=== PATIENT | male | born 1960 | race Caucasian/White ===

== ENCOUNTER 2017-10-05 11:54 | Observation (INO) | payer MEDICARE, MEDICAID ==
[~2017-10-05] VITALS: Ht 177.8 cm; Wt 57.2 kg
[~2017-10-05 11:54] MED LIST: ADULT LOW DOSE81 MG PO; ALDACTONE25 MG PO; AMITIZA8 MCG PO; ASPIR-LOW81 MG PO; ASPIR-TRIN325 MG PO; BACTRIM DS TAB1 EACH PO; CELEXA20 MG PO; CENTRUM SILVER1 EAC2 PO; CITRATE OF MAG296 ML PO; COLACE100 MG PO; COREG6.25 MG PO; DITROPAN XL10 MG PO; DYNACIN100 MG PO; ENTRESTO 24 MG1 EACH PO; GLUCOPHAGE1000 MG PO; GLUCOTROL5 MG PO; HARVONI 90-4001 EACH PO; HYDROCODON-ACE1 EAC7 PO; IRON325 PO; K-DUR 20 MEQ T20 MEQ PO; KEFLEX500 M1 PO; KEFLEX500 MG PO; LASIX 20 MG TAB20 MG PO; LASIX 40 MG TAB40 M2 PO; LUNESTA2 MG PO; LYRICA150 MG PO; METFORMIN HCL1000 MG PO; METFORMIN HCL500 MG PO; MINOCIN100 MG PO; NAPROSYN500 MG PO; NEURONTIN 300300 M1 PO; NICOTINE TRANSD21 M1 TRANSDERM; NORCO 10-325 T1 EACH PO; OMEPRAZOLE 20 M20 M1 PO; OMEPRAZOLE20 M2 PO; PERCOCET 10-321 EAC1 PO; PERCOCET 10-321 EACH PO; PERCOCET 7.5-31 EACH PO; PLAVIX 75 MG TA75 M1 PO; PRILOSEC20 MG PO; PROBIOTIC1 EAC1 PO; PROPRANOLOL 4040 M1 PO; PROPRANOLOL 4040 MG PO; RISPERDAL 1 MG T1 MG PO; RISPERIDONE 1 MG1 MG PO; SEROQUEL 25 MG25 M1 PO; SIMVASTATIN40 MG PO; TOVIAZ8 MG PO; TRAMADOL 50 MG50 MG PO; TRAZODONE HCL100 MG PO; ULTRAM 50MG TAB50 MG PO; UNICOMPLEX M TA1 TA1 PO; UNISOM50 MG PO; VITAMINC500 PO; VOLTAREN; VOLTAREN GEL 1100 G2; ZINC10 MG PO; ZOCOR20 MG PO; ZPAK PO
[2017-10-05 12:22] VITALS: BP 165/82
[2017-10-05 12:32] LABS: HEMATOCRIT 29.1 % (42.0-52.0); HEMOGLOBIN 10.2 gm/dL (14.0-18.0); MCH 29.7 pg (26.0-34.0); MCHC 34.9 g/dL (28.0-37.0); MCV 84.9 fL (80.0-100.0); MPV 7.6 fl. (7.2-11.1); NUCLEATED RBCS 0 /100WBC; PLATELET COUNT* 153 thou/uL (150-400); RBC 3.43 mil/uL (4.50-6.00); RDW-CV 14.1 % (10.5-14.5); WBC 9.4 thou/uL (4.0-11.0)
[2017-10-05 12:43] LABS: CALCIUM 9.2 mg/dL (8.5-10.1); CREATININE 0.8 mg/dL (0.6-1.3); POTASSIUM 4.4 mmol/L (3.5-5.1)
[2017-10-05 13:05] LABS: ABSOLUTE LYMPHOCYTES 0.7 thou/uL (0.8-5.3); ABSOLUTE MONOCYTES 0.5 thou/uL (0.0-1.2); ABSOLUTE NEUTROPHILS 8.3 thou/uL (1.6-8.1); PLATELET ESTIMATE ADEQUATE
[2017-10-05 13:06] LABS: ANISOCYTOSIS 1+; POIKILOCYTOSIS 1+
[2017-10-05 18:24] VITALS: BP 155/64
[2017-10-05 18:53] VITALS: BP 148/64
[2017-10-05 20:00] VITALS: BP 95/43
[2017-10-05 21:00] VITALS: BP 90/42
[2017-10-05 23:30] VITALS: BP 100/63
[2017-10-06 04:00] VITALS: BP 118/55
[2017-10-06 04:37] LABS: ABSOLUTE EOSINOPHILS 0.1 thou/uL (0.0-0.7); ABSOLUTE LYMPHOCYTES 0.9 thou/uL (0.8-5.3); ABSOLUTE MONOCYTES 0.6 thou/uL (0.0-1.2); ABSOLUTE NEUTROPHILS 3.9 thou/uL (1.6-8.1); BASOPHILS 0.4 %; EOSINOPHILS 1.2 %; HEMATOCRIT 23.6 % (42.0-52.0); HEMOGLOBIN 8.4 gm/dL (14.0-18.0); LYMPHOCYTES 15.8 %; MCH 29.4 pg (26.0-34.0); MCHC 35.4 g/dL (28.0-37.0); MCV 83.1 fL (80.0-100.0); MONOCYTES 11.1 %; MPV 7.8 fl. (7.2-11.1); NUCLEATED RBCS 0 /100WBC; PLATELET COUNT* 130 thou/uL (150-400); POLYS 71.5 %; RBC 2.84 mil/uL (4.50-6.00); RDW-CV 14.3 % (10.5-14.5); WBC 5.4 thou/uL (4.0-11.0)
[2017-10-06 04:39] LABS: CALCIUM 8.7 mg/dL (8.5-10.1); CREATININE 0.8 mg/dL (0.6-1.3); POTASSIUM 4.2 mmol/L (3.5-5.1)
[2017-10-06 07:59] VITALS: BP 117/54
[2017-10-06 09:14] VITALS: BP 117/54
--- NOTE | 2017-10-26 14:35 | OP ---
[address] [address] OPERATIVE REPORT Name: CLARA QUINN Room: [address] Carolee Zuñiga#: [id number] Admission: 10/05/17 Attend Phys: Stephane Cordero MD Discharge: 10/06/17 Date of : 64 Report #: [id number] THIS REPORT FOR: //name// CC: Germain Mcnair DATE OF SERVICE: 10/05/2017 PREOPERATIVE DIAGNOSIS: Peripheral vascular disease with ulcer in the right lower extremity. POSTOPERATIVE DIAGNOSIS: Peripheral vascular disease with ulcer in the right lower extremity. SURGEON: Jay Moise DO. BOX MAKER: None. PROCEDURE: 1. Ultrasound-guided access of the left common femoral artery. 2. Right lower extremity angiogram, catheter position third order. 3. Angioplasty of the tibioperoneal trunk and peroneal artery with VascuTrak 3 mm x 100 angioplasty balloon. 4. Angioplasty of the right anterior tibial artery and popliteal artery with Ultraverse 3 mm x 150 angioplasty balloon. 5. Limited angiogram, left common femoral artery. 6. StarClose closure device, left common femoral artery. ESTIMATED BLOOD LOSS: Minimal. SPECIMEN: None. COMPLICATIONS: None. CONDITION: Stable. DISPOSITION: Home. INDICATIONS FOR THE PROCEDURE AND CONSENT: The patient is a 56-year-old male who is active ple-tlza-sae-day smoker, status post left lower extremity amputation with an ulcer over his right lower extremity. The [facility] and has inadequate arterial flow for wound healing. He has been counseled for years about smoking cessation and is unable to quit. Due to his active ulcer though, a right lower extremity angiogram with intervention was discussed with him to optimize blood flow for wound healing for recurrent ulcer, which [place] [address] OPERATIVE REPORT Name: CLARA QUINN Room: [address] Carolee Zuñiga#: [id number] Admission: 10/05/17 Attend Phys: Stephane Cordero MD Discharge: 10/06/17 Date of : 64 Report #: [id number] benefits of this were discussed, infection, bleeding, recurrence of stenosis, limb loss despite intervention and imperative need to quit smoking, the patient wished to proceed, was consented and scheduled. PROCEDURE IN DETAIL: After timeout was performed, the patient was placed in the supine position with sterile prep and drape of the anterior groin, anterior abdomen and thigh. The left common femoral artery was identified under ultrasound guidance, local anesthetic was injected and a small transverse incision. A hemostat was used to dissect down to the femoral artery under ultrasound to allow a Seldinger needle to advance into the right common femoral artery and a wire. The needle was removed and then a 6-Zambian sheath placed. Glidewire Advantage and Omniflush catheter were advanced into the infrarenal aorta. An aortogram was performed, which demonstrated widely patent aorta, bilateral common iliacs and bilateral internal and external iliac arteries. The Glidewire Advantage and Omniflush catheter were brought down to the aortogram position and advanced into the right external iliac artery under fluoroscopic guidance. A right lower extremity angiogram was then performed, which demonstrated widely patent common femoral, superficial femoral and profunda vessel to the knee. Popliteal artery demonstrated disease, but no severe stenosis was identified. Below the knee, the tibioperoneal trunk was heavily diseased and nearly occluded. The anterior tibial artery was patent at its origin with a near occlusion approximately a centimeter beyond its origin, good flow in the mid to distal calf, which appeared to normalize fairly well. The peroneal artery was the primary flow to the ankle and anterior tibial artery had delayed flow distally. Flow on to the foot into the area of his wounds was primarily through the collaterals of the peroneal artery. The patient was systemically heparinized with 6000 units of heparin and an up and over 6-Zambian sheath was selected and advanced over the wire into the proximal superficial femoral artery. A 0.014 Glidewire Advantage was advanced beyond the severe stenosis in the tibioperoneal trunk and into the distal peroneal vessel without difficulty. This was felt to be best treated with a VascuTrak cutting balloon. A 3 mm x 100 VascuTrak was selected and advanced into position under fluoroscopic guidance and angioplasty performed and allowed to be sustained for 4 minutes. Repeat angiography demonstrated excellent radiographic result without flow limitation or stenosis. I then negotiated the 0.014 Glidewire Advantage into the anterior tibial artery with the assistance of an angled vertebral catheter and I was able to negotiate the wire into the distal anterior tibial artery with modest difficulty. I attempted to advance the previously mentioned VascuTrak balloon; however, it would not pass over the wire into the distal anterior tibial artery. I then felt that an Ultraverse may track better and a 3 x 150 was selected and advanced into position and angioplasty performed for 4 minutes. Repeat angiography demonstrated excellent radiographic result of both vessels. I then removed the wire and balloon and advanced the 0.035 Glidewire Advantage back through the sheath and retracted the sheath in the left external iliac artery and [place] [address] OPERATIVE REPORT Name: CLARA QUINN Room: [address]#: [id number] Admission: 10/05/17 Attend Phys: Stephane Cordero MD Discharge: 10/06/17 Date of : 64 Report #: [id number] left common femoral artery. It was noted to be appropriate for closure device. Angio-Seal closure device was not available to me. We will send a back order. A StarClose device was used instead. It was deployed in a standard fashion without difficulty and did not appear to bleed. Pressure was held for 2 minutes for additional hemostasis; 4-0 Monocryl was used to close the skin and Dermabond dressing was applied. The patient tolerated the procedure well. All lap, needle and instrument counts were correct. <ELECTRONICALLY SIGNED> By: Jay Moise DO 10/26/17 1435 2153 0142Jay Moise DO /nt
== END 2017-10-06 10:40 | disposition home or self-care (01) ==
LOC: M.INT 11:54 → M.ORTHSURG 17:24
PROVIDERS: Surgery; ADMIT Internal Medicine
DX: I73.9 Peripheral vascular disease, unspecified (principal); L97.919 Non-pressure chronic ulcer of unspecified part of right lower leg with unspecified severity; I10 Essential (primary) hypertension; E11.42 Type 2 diabetes mellitus with diabetic polyneuropathy; F17.210 Nicotine dependence, cigarettes, uncomplicated; I11.0 Hypertensive heart disease with heart failure; I50.9 Heart failure, unspecified; Z86.73 Personal history of transient ischemic attack (TIA), and cerebral infarction without residual deficits; Z79.899 Other long term (current) drug therapy

== ENCOUNTER → 2017-10-12 | Outpatient (CLI) | payer MEDICARE, MEDICAID ==
[~2017-10-12] MED LIST changes: +ATIVAN0.5 MG PO; +HYDROXYZINE HCL25 M1 PO; +INGREZZA80 MG PO; +LEXAPRO 10 MG T10 M2 PO; +NORCO 5-325 TA1 EACH PO; +NORCO 7.5-3251 EACH PO; +ONDANSETRON HCL4 M2 PO; +OXYBUTYNIN 5 MG5 M2 PO; +ROBAXIN 750 MG750 M1 PO; +SERTRALINE HCL50 MG PO; +SODIUM CHLORIDE1 G2 PO; +XANAX 1 MG TABLE1 MG PO
== END ==
LOC: M.WC 02:42
DX: E11.622 Type 2 diabetes mellitus with other skin ulcer (principal); L97.311 Non-pressure chronic ulcer of right ankle limited to breakdown of skin; L89.891 Pressure ulcer of other site, stage 1; I50.9 Heart failure, unspecified; F17.210 Nicotine dependence, cigarettes, uncomplicated; F12.90 Cannabis use, unspecified, uncomplicated; F14.90 Cocaine use, unspecified, uncomplicated; Z72.89 Other problems related to lifestyle; Z89.512 Acquired absence of left leg below knee

== ENCOUNTER → 2017-10-19 | Outpatient (CLI) | payer MEDICARE, MEDICAID | LOC: M.WC 01:24 | DX: T87.89 Other complications of amputation stump (principal); E11.622 Type 2 diabetes mellitus with other skin ulcer; I70.233 Atherosclerosis of native arteries of right leg with ulceration of ankle; L97.311 Non-pressure chronic ulcer of right ankle limited to breakdown of skin; L97.821 Non-pressure chronic ulcer of other part of left lower leg limited to breakdown of skin; F17.210 Nicotine dependence, cigarettes, uncomplicated; I50.9 Heart failure, unspecified; F14.90 Cocaine use, unspecified, uncomplicated; Z72.89 Other problems related to lifestyle; Y83.5 Amputation of limb(s) as the cause of abnormal reaction of the patient, or of later complication, without mention of misadventure at the time of the procedure ==

== ENCOUNTER → 2017-10-26 | Outpatient (CLI) | payer MEDICARE, MEDICAID | LOC: M.WC 01:19 | DX: E11.622 Type 2 diabetes mellitus with other skin ulcer (principal); L97.311 Non-pressure chronic ulcer of right ankle limited to breakdown of skin; L89.512 Pressure ulcer of right ankle, stage 2; L89.893 Pressure ulcer of other site, stage 3; L97.821 Non-pressure chronic ulcer of other part of left lower leg limited to breakdown of skin; I50.9 Heart failure, unspecified; F17.200 Nicotine dependence, unspecified, uncomplicated; Z89.512 Acquired absence of left leg below knee; Z72.89 Other problems related to lifestyle ==

== ENCOUNTER → 2017-11-16 | Outpatient (CLI) | payer MEDICARE, MEDICAID | LOC: M.WC 01:43 | DX: E11.622 Type 2 diabetes mellitus with other skin ulcer (principal); L97.311 Non-pressure chronic ulcer of right ankle limited to breakdown of skin; L97.821 Non-pressure chronic ulcer of other part of left lower leg limited to breakdown of skin; L89.893 Pressure ulcer of other site, stage 3; I50.9 Heart failure, unspecified; F17.200 Nicotine dependence, unspecified, uncomplicated; Z72.89 Other problems related to lifestyle ==

== ENCOUNTER → 2017-12-07 | Outpatient (CLI) | payer MEDICARE, MEDICAID | LOC: M.WC 04:47 | DX: E11.622 Type 2 diabetes mellitus with other skin ulcer (principal); L97.311 Non-pressure chronic ulcer of right ankle limited to breakdown of skin; L89.893 Pressure ulcer of other site, stage 3; L89.512 Pressure ulcer of right ankle, stage 2; S81.801A Unspecified open wound, right lower leg, initial encounter; I50.9 Heart failure, unspecified; F17.200 Nicotine dependence, unspecified, uncomplicated; Z72.89 Other problems related to lifestyle; Z89.512 Acquired absence of left leg below knee; X58.XXXA Exposure to other specified factors, initial encounter; Y93.89 Activity, other specified; Y92.89 Other specified places as the place of occurrence of the external cause; Y99.8 Other external cause status ==

== ENCOUNTER → 2018-01-11 | Outpatient (CLI) | payer MEDICARE, MEDICAID | LOC: M.WC 12-28 10:00 | DX: T87.89 Other complications of amputation stump (principal); E11.622 Type 2 diabetes mellitus with other skin ulcer; I70.233 Atherosclerosis of native arteries of right leg with ulceration of ankle; L97.311 Non-pressure chronic ulcer of right ankle limited to breakdown of skin; L97.811 Non-pressure chronic ulcer of other part of right lower leg limited to breakdown of skin; L97.821 Non-pressure chronic ulcer of other part of left lower leg limited to breakdown of skin; F17.210 Nicotine dependence, cigarettes, uncomplicated; I50.9 Heart failure, unspecified; F14.90 Cocaine use, unspecified, uncomplicated; Y83.5 Amputation of limb(s) as the cause of abnormal reaction of the patient, or of later complication, without mention of misadventure at the time of the procedure ==

== ENCOUNTER → 2018-02-01 | Outpatient (CLI) | payer MEDICARE, MEDICAID | LOC: M.WC 02:51 | DX: T87.89 Other complications of amputation stump (principal); E11.622 Type 2 diabetes mellitus with other skin ulcer; I70.233 Atherosclerosis of native arteries of right leg with ulceration of ankle; L97.311 Non-pressure chronic ulcer of right ankle limited to breakdown of skin; F17.210 Nicotine dependence, cigarettes, uncomplicated; I50.9 Heart failure, unspecified; Y83.5 Amputation of limb(s) as the cause of abnormal reaction of the patient, or of later complication, without mention of misadventure at the time of the procedure ==

== ENCOUNTER → 2018-03-01 | Outpatient (CLI) | payer MEDICARE, MEDICAID | LOC: M.WC 04:11 | DX: E11.622 Type 2 diabetes mellitus with other skin ulcer (principal); L97.318 Non-pressure chronic ulcer of right ankle with other specified severity; I70.233 Atherosclerosis of native arteries of right leg with ulceration of ankle; I50.9 Heart failure, unspecified; F17.210 Nicotine dependence, cigarettes, uncomplicated; F12.90 Cannabis use, unspecified, uncomplicated; Z89.512 Acquired absence of left leg below knee ==

== ENCOUNTER → 2018-04-26 | Outpatient (CLI) | payer MEDICARE, MEDICAID | LOC: M.WC 04:44 | DX: T87.89 Other complications of amputation stump (principal); E11.621 Type 2 diabetes mellitus with foot ulcer; L97.511 Non-pressure chronic ulcer of other part of right foot limited to breakdown of skin; E11.622 Type 2 diabetes mellitus with other skin ulcer; I70.233 Atherosclerosis of native arteries of right leg with ulceration of ankle; L97.311 Non-pressure chronic ulcer of right ankle limited to breakdown of skin; I50.9 Heart failure, unspecified; F17.200 Nicotine dependence, unspecified, uncomplicated; Z89.512 Acquired absence of left leg below knee; Y83.5 Amputation of limb(s) as the cause of abnormal reaction of the patient, or of later complication, without mention of misadventure at the time of the procedure ==

== ENCOUNTER → 2018-05-10 | Outpatient (CLI) | payer MEDICARE, MEDICAID | LOC: M.WC 04:06 | DX: T87.89 Other complications of amputation stump (principal); E11.621 Type 2 diabetes mellitus with foot ulcer; L97.511 Non-pressure chronic ulcer of other part of right foot limited to breakdown of skin; E11.622 Type 2 diabetes mellitus with other skin ulcer; I70.233 Atherosclerosis of native arteries of right leg with ulceration of ankle; L97.311 Non-pressure chronic ulcer of right ankle limited to breakdown of skin; I50.9 Heart failure, unspecified; F17.210 Nicotine dependence, cigarettes, uncomplicated; F10.11 Alcohol abuse, in remission; Z89.512 Acquired absence of left leg below knee; Y83.5 Amputation of limb(s) as the cause of abnormal reaction of the patient, or of later complication, without mention of misadventure at the time of the procedure ==

== ENCOUNTER 2018-05-17 13:53 | Inpatient (IN) | payer MEDICARE, MEDICAID ==
[~2018-05-17] VITALS: Ht 177.8 cm; Wt 53.1 kg
[~2018-05-17 13:53] MED LIST changes: -ATIVAN0.5 MG PO; -HYDROXYZINE HCL25 M1 PO; -INGREZZA80 MG PO; -LEXAPRO 10 MG T10 M2 PO; -NORCO 5-325 TA1 EACH PO; -NORCO 7.5-3251 EACH PO; -ONDANSETRON HCL4 M2 PO; -OXYBUTYNIN 5 MG5 M2 PO; -ROBAXIN 750 MG750 M1 PO; -SERTRALINE HCL50 MG PO; -SODIUM CHLORIDE1 G2 PO; -XANAX 1 MG TABLE1 MG PO
[2018-05-17 13:59] VITALS: BP 136/69
[2018-05-17] MEDS ORDERED: INGREZZA80 MG PO (14:11)
[2018-05-17] MEDS ORDERED: NORCO 7.5-3251 EACH PO (14:11)
[2018-05-17] MEDS ORDERED: HYDROXYZINE HCL25 M1 PO (14:13)
[2018-05-17] MEDS ORDERED: OXYBUTYNIN 5 MG5 M2 PO (14:13)
[2018-05-17] MEDS ORDERED: SERTRALINE HCL50 MG PO (14:15)
[2018-05-17 14:29] LABS: ABSOLUTE BASOPHILS 0.1 thou/uL (0.0-0.2); ABSOLUTE EOSINOPHILS 0.2 thou/uL (0.0-0.7); ABSOLUTE LYMPHOCYTES 1.3 thou/uL (0.8-5.3); ABSOLUTE MONOCYTES 0.8 thou/uL (0.0-1.2); ABSOLUTE NEUTROPHILS 5.7 thou/uL (1.6-8.1); BASOPHILS 0.7 %; EOSINOPHILS 2.1 %; HEMATOCRIT 34.2 % (42.0-52.0); HEMOGLOBIN 11.9 gm/dL (14.0-18.0); LYMPHOCYTES 15.7 %; MCH 28.3 pg (26.0-34.0); MCHC 34.8 g/dL (28.0-37.0); MCV 81.4 fL (80.0-100.0); MPV 7.9 fl. (7.2-11.1); NUCLEATED RBCS 0 /100WBC; PLATELET COUNT* 187 thou/uL (150-400); POLYS 71.5 %; RDW-CV 13.3 % (10.5-14.5)
[2018-05-17 14:40] LABS: INR 1.2; PROTIME 11.4 Seconds (9.20-11.50)
[2018-05-17 15:26] LABS: ALBUMIN 3.5 g/dL (3.4-5.0); ALKALINE PHOSPHATASE 44 U/L (46-116); ANION GAP 6 mmol/L (7-16); BUN 21 mg/dL (7-18); CALCIUM 8.8 mg/dL (8.5-10.1); CHLORIDE 95 mmol/L (98-107); CO2 26 mmol/L (21-32); CREATININE 1.1 mg/dL (0.6-1.3); GLUCOSE 87 mg/dL (70-99); LIPASE 66 U/L (73-393); SGOT 14 U/L (15-37); SGPT 17 U/L (30-65); SODIUM 127 mmol/L (136-145); TOTAL BILIRUBIN 0.2 mg/dL (<0.1-1.0); TROPONIN-I LEVEL <0.06 ng/mL (<0.06)
[2018-05-17 16:21] LABS: URINE BILIRUBIN NEGATIVE (Negative); URINE BLOOD NEGATIVE (Negative); URINE CLARITY CLEAR; URINE COLOR YELLOW; URINE GLUCOSE-RANDOM NEGATIVE (Negative); URINE KETONES TRACE (Negative); URINE LEUKOCYTES-REFLEX NEGATIVE (Negative); URINE NITRITE-REFLEX NEGATIVE (Negative); URINE PROTEIN NEGATIVE (Negative); URINE SPECIFIC GRAVITY <= 1.005 (1.005-1.030); URINE UROBILINOGEN 0.2 E.U./dl (0.2-1.0)
[2018-05-17 17:25] VITALS: BP 132/61
[2018-05-17 17:30] VITALS: BP 152/68
--- NOTE | 2018-05-17 18:25 | NUR ---
PATIENT ARRIVED TO UNIT FROM ED AT 1725. ALERT AND ORIENTED X4. ASSESSMENT COMPLETED AND CHARTED. VSS ON ROOM AIR. FLUIDS STARTED AND INFUSING ORDERED. ADMISSION HISTORY COMPLETED AND CHARTED. PATIENT HAS NOT HAD A BOWEL MOVEMENT SINCE ARRIVING AT THE HOSPITAL TODAY, OR TO THE UNIT. NO COMPLAINTS OF PAIN, NAUSEA, OR SOA. PATIENT ORIENTED TO ROOM AND INSTRUCTED TO CALL FOR ASSISTANCE. CALL LIGHT PLACED IN REACH. NURSING WILL CONTINUE TO MONITOR.
[2018-05-17 20:30] VITALS: BP 140/78
[2018-05-18 04:16] LABS: ABSOLUTE EOSINOPHILS 0.2 thou/uL (0.0-0.7); ABSOLUTE LYMPHOCYTES 1.4 thou/uL (0.8-5.3); ABSOLUTE MONOCYTES 0.6 thou/uL (0.0-1.2); ABSOLUTE NEUTROPHILS 3.3 thou/uL (1.6-8.1); BASOPHILS 0.7 %; EOSINOPHILS 3.2 %; HEMATOCRIT 29.3 % (42.0-52.0); HEMOGLOBIN 10.2 gm/dL (14.0-18.0); LYMPHOCYTES 25.9 %; MCH 28.2 pg (26.0-34.0); MCHC 34.9 g/dL (28.0-37.0); MCV 80.8 fL (80.0-100.0); MONOCYTES 11.1 %; MPV 7.8 fl. (7.2-11.1); NUCLEATED RBCS 0 /100WBC; PLATELET COUNT* 182 thou/uL (150-400); POLYS 59.1 %; RBC 3.63 mil/uL (4.50-6.00); RDW-CV 13.2 % (10.5-14.5); WBC 5.6 thou/uL (4.0-11.0)
[2018-05-18 04:46] LABS: ALBUMIN 3.8 g/dL (3.4-5.0); CALCIUM 8.7 mg/dL (8.5-10.1); CREATININE 0.9 mg/dL (0.6-1.3); POTASSIUM 4.5 mmol/L (3.5-5.1); TOTAL BILIRUBIN 0.3 mg/dL (<0.1-1.0); TOTAL PROTEIN 6.9 g/dL (6.4-8.2)
--- NOTE | 2018-05-18 07:17 | NUR ---
Alert and oriented x 4. L below the knee amputation that is old and healed but does have a red area on the stump. He gets up in the wheelchair and moves about the room. Voiding well and no BM. He had pain meds x 2 this shift. He has slept well. Vitals are stable.
[2018-05-18 08:55] VITALS: BP 101/63
[2018-05-18 09:39] VITALS: BP 101/63
--- NOTE | 2018-05-18 10:25 | NUR ---
ASSUMED CARE OF PATIENT AFTER MORNING REPORT. ALERT AND ORIENTED X4. ASSESSMENT COMPLETED AND CHARTED. VSS ON ROOM AIR. PATIENT HAD NO COMPLAINTS OF NAUSEA OR SOA. PAIN MEDICATION GIVEN BY NIGHT NURSE BEFORE 0700. PATIENT CALLING OUT REPEATEDLY FOR NEEDS, WANTING TO GO HOME AND ASKING FOR A SCRIPT FOR PAIN MEDICATION. PATIENT HAS HAD NO BOWEL MOVEMENT SINCE ARRIVING TO THE HOSPITAL YESTERDAY AFTERNOON, DIARRHEA SEEMS TO HAVE RESOLVED ON ITS OWN. PATIENT CLEARED TO DISCHARGE AND LEFT AT 1020, ALL PERSONAL BELONGINGS AND DISCHARGE PACKET SENT WITH PATIENT.
--- NOTE | 2018-05-18 10:51 | EKG ---
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 : 1960 Requested By: Amilcar Olivas Order Number: [id number] MD: Leonid Earl Measurements Intervals Lillie Rate: 71 P: 105 WY: 165 QRS: 72 QRSD: 105 T: 85 QT: 390 QTc: 424 Interpretive Statements Sinus rhythm Probable septal infarct, old Minimal ST depression, lateral leads Compared to ECG 07/06/2016 16:21:43 ST (T wave) deviation now present Electronically Signed On 05-18-2018 10:51:13 CDT by Leonid Earl [email or web address] <ELECTRONICALLY SIGNED> By: Leonid Earl MD, [facility] 05/18/18 1051 1414 1414 Leonid Earl MD, [facility] /EPI
== END 2018-05-18 10:20 | disposition home or self-care (01) | DRG 641 ==
LOC: M.ERS 13:53 → M.ORTHSURG 16:18 → M.TBA-ER 16:18 → M.ORTHSURG 17:16
PROVIDERS: Family Medicine; ADMIT Internal Medicine
DX: E86.0 Dehydration (principal); A08.4 Viral intestinal infection, unspecified; E87.1 Hypo-osmolality and hyponatremia; E11.51 Type 2 diabetes mellitus with diabetic peripheral angiopathy without gangrene; I11.0 Hypertensive heart disease with heart failure; F17.210 Nicotine dependence, cigarettes, uncomplicated; I50.9 Heart failure, unspecified; W18.30XA Fall on same level, unspecified, initial encounter; I25.10 Atherosclerotic heart disease of native coronary artery without angina pectoris; G89.29 Other chronic pain; Y93.89 Activity, other specified; Y92.89 Other specified places as the place of occurrence of the external cause; Y99.8 Other external cause status; Z79.02 Long term (current) use of antithrombotics/antiplatelets; Z89.512 Acquired absence of left leg below knee; Z86.73 Personal history of transient ischemic attack (TIA), and cerebral infarction without residual deficits; Z79.82 Long term (current) use of aspirin; Z79.899 Other long term (current) drug therapy; Z88.1 Allergy status to other antibiotic agents; Z88.8 Allergy status to other drugs, medicaments and biological substances; Z83.3 Family history of diabetes mellitus; Z82.49 Family history of ischemic heart disease and other diseases of the circulatory system

== ENCOUNTER 2018-05-22 16:28 | Inpatient (IN) | payer MEDICARE, MEDICAID ==
[~2018-05-22] VITALS: Ht 152.4 cm; Wt 54.4 kg
[~2018-05-22 16:28] MED LIST changes: +HYDROXYZINE HCL25 M1 PO; +INGREZZA80 MG PO; +NORCO 7.5-3251 EACH PO; +OXYBUTYNIN 5 MG5 M2 PO; +SERTRALINE HCL50 MG PO
[2018-05-22 16:41] VITALS: BP 133/67
[2018-05-22 17:39] LABS: ABSOLUTE EOSINOPHILS 0.2 thou/uL (0.0-0.7); ABSOLUTE LYMPHOCYTES 1.5 thou/uL (0.8-5.3); ABSOLUTE MONOCYTES 0.6 thou/uL (0.0-1.2); ABSOLUTE NEUTROPHILS 5.1 thou/uL (1.6-8.1); BASOPHILS 0.5 %; EOSINOPHILS 2.3 %; HEMATOCRIT 32.1 % (42.0-52.0); HEMOGLOBIN 11.2 gm/dL (14.0-18.0); LYMPHOCYTES 20.2 %; MCH 28.4 pg (26.0-34.0); MCHC 34.9 g/dL (28.0-37.0); MCV 81.6 fL (80.0-100.0); MONOCYTES 7.8 %; MPV 6.9 fl. (7.2-11.1); NUCLEATED RBCS 0 /100WBC; PLATELET COUNT* 194 thou/uL (150-400); POLYS 69.2 %; RBC 3.93 mil/uL (4.50-6.00); RDW-CV 13.2 % (10.5-14.5); WBC 7.3 thou/uL (4.0-11.0)
[2018-05-22 17:45] LABS: ANION GAP 5 mmol/L (7-16); BUN 18 mg/dL (7-18); CHLORIDE 94 mmol/L (98-107); CO2 30 mmol/L (21-32); CREATININE 1.1 mg/dL (0.6-1.3); GLUCOSE 97 mg/dL (70-99); POTASSIUM 4.6 mmol/L (3.5-5.1); SODIUM 129 mmol/L (136-145)
[2018-05-22 17:52] LABS: ALBUMIN 4.2 g/dL (3.4-5.0); ALKALINE PHOSPHATASE 45 U/L (46-116); SGOT 16 U/L (15-37); SGPT 17 U/L (30-65); TOTAL BILIRUBIN 0.5 mg/dL (<0.1-1.0); TOTAL PROTEIN 7.7 g/dL (6.4-8.2); TROPONIN-I LEVEL <0.06 ng/mL (<0.06)
[2018-05-22 18:27] LABS: URINE BILIRUBIN NEGATIVE (Negative); URINE BLOOD NEGATIVE (Negative); URINE CLARITY CLEAR; URINE COLOR YELLOW; URINE GLUCOSE-RANDOM NEGATIVE (Negative); URINE KETONES NEGATIVE (Negative); URINE LEUKOCYTES-REFLEX NEGATIVE (Negative); URINE NITRITE-REFLEX NEGATIVE (Negative); URINE PROTEIN NEGATIVE (Negative); URINE UROBILINOGEN 0.2 E.U./dl (0.2-1.0)
[2018-05-22 20:25] VITALS: BP 151/82
[2018-05-22 20:40] VITALS: BP 153/64
[2018-05-23] VITALS: BP 117/42; BP 125/70
--- NOTE | 2018-05-23 03:06 | NUR ---
PT ADMITTED AT 2034 ON TELE FLOOR ACCOMPANIED BY ER NURSE, TRANSPORTED ON A STRETCHER ON ROOM AIR. PT FIXED IN BED WITH ASSISTANCE OF TWO NURSES. VITAL SIGNS TAKEN THEY ARE WITHIN NORMAL LIMIT. O2 SAT 98% RA. PT COMPLAINS OF PAIN IN LEFT SHOULDER AND LEFT HIP. HE RECORDED HAVING SX DONE IN LEFT HIP AND L SHOULDER IN THE PAST. MORPHINE WAS GIVEN. PT STATED THAT HE WANTS PERCOCET INSTEAD OF MORPHINE. SO NEW ORDER RECEIVED FORM SOME PERCOCET WHICH WAS GIVEN. ALONG WITH OTHER SCHEDULED MEDS. MAG REPLACEMNT ADMINISTERED ORDERED. 2 BAGS OF MAG 2 MG WERE GIVEN. MAG LAB SCHEDULED FOR 0400AM. ADMISSION HX AND ASSESSEMTN WAS DONE. REFER TO CHART. WOUND DISCOVERED IN LEFT ANTERIOR LEG AND IN LEFT FOOT. PICTURES WERE TAKEN. AND WOUND CARE CONSULTED PER PROTOCOL. PT IS A SMOKER. AT AROUND 0230 WENT IN THE ROOM AND SMELLED CIGARETTES, ASKED PT IF HE HAS BEEN SMOKING HE SAYS YES. TWO PACKS OF CIGARETTES WERE FOUND IN PT S BAG. AND PT SEEMS TO HAVE USED ONE CIGARATTE PRIOR TO MY DISCOVERY. ROOM WAS ASSESSED AND ONE USED CIGARRTTE FOUND ON THE FLOOR. THE TWO PACKS OF CIGARRTTES AND THE PROJECT RESERVOIR ENGINEER FOUND IN THE BAG WERE SENT TO SECURITY. PT SIGNED RELEASE PAPER. USED CIGARETTE WAS DISCARDED. WILL CONTINUE TO MONITOR
[2018-05-23 04:00] VITALS: BP 144/71
[2018-05-23 08:00] VITALS: BP 148/71
[2018-05-23 09:20] LABS: HEMATOCRIT 34.4 % (42.0-52.0); HEMOGLOBIN 11.6 gm/dL (14.0-18.0); MCH 27.8 pg (26.0-34.0); MCHC 33.8 g/dL (28.0-37.0); MCV 82.4 fL (80.0-100.0); MPV 7.3 fl. (7.2-11.1); RBC 4.18 mil/uL (4.50-6.00); RDW-CV 13.1 % (10.5-14.5); WBC 8.6 thou/uL (4.0-11.0)
[2018-05-23 09:22] LABS: CALCIUM 8.7 mg/dL (8.5-10.1); CREATININE 0.9 mg/dL (0.6-1.3); POTASSIUM 4.2 mmol/L (3.5-5.1)
--- NOTE | 2018-05-23 09:39 | EKG ---
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 : 1960 Requested By: Charli Hudson Order Number: [id number] MD: Yonathan Hsu Measurements Intervals [place] Rate: 76 P: 77 ME: 182 QRS: 66 QRSD: 120 T: 71 QT: 376 QTc: 423 Interpretive Statements Sinus rhythm Atrial premature complex Nonspecific intraventricular conduction delay Anteroseptal infarct, age indeterminate Compared to ECG 05/17/2018 14:14:35 Atrial premature complex(es) now present Intraventricular conduction delay now present ST (T wave) deviation no longer present Myocardial infarct finding still present Electronically Signed On 05-23-2018 9:39:14 CDT by Yonathan Hsu [email or web address] <ELECTRONICALLY SIGNED> By: Yonathan Hsu MD, FACC 05/23/18 0939 1743 1743 Yonathan Hsu MD, [facility] /EPI
--- NOTE | 2018-05-23 09:47 | NUR ---
ASSUMED RESPONSIBILITY OF PT THIS AM PT IS ALERT AND ORIENTED BUT FORGETFUL AT TIMES LIVES AT HOME WITH HIS MOM NEEDS MAX ASSIST TO CHAIR OR WHEELCHAIR BKA ON THE LEFT SIDE INCREASING TREMORS WHEN TRYING TO SIT STILL PT HAS NOT HAD DIARRHEA N/V SINCE LATE LAST NIGHT IN ER BS ARE HYPERACTIVE CLEAR LIQUIDS THIS AM TOLERATING WELL ADVANCING TO CARB CONTROLLED AT LUNCH ACCORDING TO ORDERS PT IS IN CHAIR CALLS OUT APPROPRIATELY IV WAS NOT GOOD PT NEEDS NEW IV AND NS AT 100/H ORDER PUT IN
--- NOTE | 2018-05-23 10:41 | NUR ---
Nutrition: Pt assessed for wound on ankle. RX: metformin, MVI, insulin. Tolerating CLD currently. BG 134, albumin 4.2. H/o Lt BKA, DM, schizo, HTN, COPD, Hep C, CHF. Admitted with diarrhea and shoulder pain/fall. Wt is stable at 120-125#. Per [employer], wt was 135# about two years ago. Will follow wt trends. Mild risk. ADVANCE DIET WHEN PT CLINICALLY ABLE, TOLERATED, TO GOAL OF CHO CONTROLLED.
--- NOTE | 2018-05-23 11:52 | NUR ---
SW met with pt to complete initial assessment, introduce self, and SW role. Pt alert, oriented, pleasant. Pt lives at home with his mother. Pt has support in his sister and a friend as well as [employer] services. Pt has needed DME at home and does not anticipate any dc needs at this time. SW to continue to follow to assist with safe dc planning.
--- NOTE | 2018-05-23 11:56 | NUR ---
PT GOING DOWN TO ORTHO IN ROOM 101 REPORT GIVEN TO BRENDON TRIED TO PUT AN IV IN TWICE ONCE IT BENT AND THE SECOND ONE BLEW, SAME HAPPENED TO ANOTHER NURSE SO MAY NEED SOMEONE ELSE TRY OR A PICC PT STATED HE WAS AN IV DRUG USER PREVIOUSLY
--- NOTE | 2018-05-23 13:07 | NUR ---
PATIENT CAME TO THE FLOOR FROM TELE IN STABLE CONDITION, NO COMPLAINTS AT THIS TIME. CALL LIGHT IS IN REACH, WILL CONTINUE TO MONITOR.
[2018-05-23 16:13] VITALS: BP 169/87
--- NOTE | 2018-05-23 17:37 | NUR ---
PATIENT HAS BEEN ALERT AND ORIENTED TODAY SINCE ARRIVING FROM TELE. HAD SONE COMPLAINTS OF PAIN THAT IS CHRONIC BUT WELL CONTROLLED WITH ORAL PAIN MEDICATIONS. IV INSERTED BY INFUSION IN RIGHT FOREARM. CALL LIGHT IS IN REACH, WILL CONTINUE TO MONITOR.
[2018-05-23 23:55] VITALS: BP 174/85
[2018-05-24 03:51] LABS: HEMATOCRIT 28.2 % (42.0-52.0); MCH 27.9 pg (26.0-34.0); MCHC 34.1 g/dL (28.0-37.0); MCV 81.8 fL (80.0-100.0); MPV 7.3 fl. (7.2-11.1); RBC 3.44 mil/uL (4.50-6.00); RDW-CV 13.4 % (10.5-14.5); WBC 5.3 thou/uL (4.0-11.0)
[2018-05-24 04:00] LABS: ALBUMIN 3.6 g/dL (3.4-5.0); CALCIUM 8.2 mg/dL (8.5-10.1); CREATININE 0.8 mg/dL (0.6-1.3); MAGNESIUM 1.6 mg/dL (1.8-2.4); PHOSPHORUS* 3.2 mg/dL (2.5-4.9); POTASSIUM 4.7 mmol/L (3.5-5.1)
[2018-05-24 04:04] VITALS: BP 102/59
[2018-05-24 04:06] LABS: HEMOGLOBIN 9.6 gm/dL (14.0-18.0)
--- NOTE | 2018-05-24 04:48 | NUR ---
ASSESSMENT COMPLETE. PT SLEPT THROUGH THE NIGHT WITHOUT ANY CONCERNS. PT GIVEN PAIN MEDICATION ONCE NEEDED. PT DENIES N/V. PT HAS IV FLUIDS INFUSING. PT IS ON ROOM AIR WITH [place] SATS. PT USES URINAL NEEDED. PT IS UP ONE ASSIST WITH WALKER. PT IS FALL RISK, BED ALARM ON. SEE ASSESSMENT AND VITALS FOR OTHER DETAILS. CALL LIGHT WITHIN REACH, WILL CONTINUE PLAN OF CARE
[2018-05-24 08:15] VITALS: BP 154/75
--- NOTE | 2018-05-24 09:46 | NUR ---
WOUND CARE NOTE: CONSULT RECEIVED FOR WOUND IN RIGHT FOOT PRESENT ON ADMISSION. PATIENT PRESENTS WITH SEVERAL SCABS TO RIGHT FOOT AND DISTAL LEG. THESE ARE ALL STABLE AND WITHOUT S/S OF INFECTION. RECOMMEND LEAVING OPEN TO AIR AT THIS TIME. WILL SIGN OFF. PLEASE RECONSULT IF NEEDED.
[2018-05-24 16:00] VITALS: BP 174/90
--- NOTE | 2018-05-24 16:04 | NUR ---
PATIENT UP TO BATHROOM WITH ASSISTANCE; WHEELCHAIR UTILIZED. PATIENT HAD LARGE LIQUID STOOL. MG BEING REPLACED ORALLY, 2ND DOSE HELD AT THIS TIME DUE TO DIARRHEA EPISODE. IV SL THIS AM PER ORDERS. PATIENT SHOWERED THIS AM. PRN HYDROCODONE GIVEN X 1 THIS SHIFT, GOOD RELIEF NOTED.
[2018-05-25 00:38] VITALS: BP 133/73
[2018-05-25 03:55] LABS: HEMATOCRIT 26.6 % (42.0-52.0); HEMOGLOBIN 9.4 gm/dL (14.0-18.0); MCH 28.7 pg (26.0-34.0); MCHC 35.5 g/dL (28.0-37.0); MCV 80.8 fL (80.0-100.0); MPV 7.3 fl. (7.2-11.1); RBC 3.29 mil/uL (4.50-6.00); RDW-CV 12.8 % (10.5-14.5); WBC 6.8 thou/uL (4.0-11.0)
[2018-05-25 04:17] LABS: ALBUMIN 3.3 g/dL (3.4-5.0); CALCIUM 8.1 mg/dL (8.5-10.1); CREATININE 0.8 mg/dL (0.6-1.3); POTASSIUM 4.8 mmol/L (3.5-5.1); TOTAL BILIRUBIN 0.2 mg/dL (<0.1-1.0); TOTAL PROTEIN 5.7 g/dL (6.4-8.2)
--- NOTE | 2018-05-25 06:24 | NUR ---
PATIENT SLEPT MOST OF THE NIGHT. IV REMAINS SALINE LOCKED. MAG WAS 1.4 WAS REPLACED PER PROTOCOL WITH IV MAG AND IS NOW 2.O. PATIENT WAS GIVEN PAIN MEDICINE ABOUT EVERY FOUR HOURS. WILL CONTINUE TO MONITOR.
[2018-05-25 09:30] VITALS: BP 138/69
[2018-05-25] MEDS ORDERED: SODIUM CHLORIDE1 G2 PO (10:02)
[2018-05-25] MEDS ORDERED: NORCO 7.5-3251 EACH PO (10:07)
[2018-05-25 10:26] VITALS: BP 138/69
--- NOTE | 2018-05-25 10:48 | NUR ---
CM SPOKE TO THE PATIENT TO DISCUSS ANY QUESTIONS OR CONCERNS THAT HE MAY HAVE, AND ANY DISCHARGE PLANNING NEEDS. PATIENT HAS NO QUESTIONS OR CONCERNS AT THIS TIME, AND STATES THAT HE WOULD LIKE HH SETUP WITH [facility] HE IS CURRENT WITH THE [employer] SERVICES. CM SPOKE TO [facility] WITH [facility] TO INFORM OF THE NEW PATIENT REFERRAL FOR HH, AND FAXED PATIENT'S CLINICAL INFO. CM WILL REMAIN AVAILABLE TO ASSIST AND FOLLOW NEEDED.
--- NOTE | 2018-05-25 11:52 | NUR ---
ASSUMED CARE OF PATIENT AFTER MORNING REPORT AT APPROX 0720. ALERT AND ORIENTED X4. ASSESSMENT COMPLETED AND CHARTED. VSS ON ROOM AIR. PATIENT HAD NO COMPLAINTS OF PAIN, NAUSEA OR SOA FOR THIS NURSE. PATIENT CALLED OUT REPEATEDLY FOR DRINKS FROM BEGINNING OF SHIFT UNTIL DISCHARGE. UPON DISCHARGE INSTRUCTIONS BY THIS NURSE, PATIENT EDUCATED ON USING HIS PRIMARY CARE PHYSICIAN AND/OR AN URGENT CARE CLINIC RATHER THAN THE EMERGENCY ROOM. PATIENT DISCHARGED AT 1100, ALL PERSONAL BELONGINGS, DISCHARGE INFORATION AND PRESCRIPTIONS GIVEN TO PATIENT.
== END 2018-05-25 11:00 | disposition home health service (06) | DRG 641 ==
LOC: M.ERS 16:28 → M.2W 18:51 → M.TBA-ER 18:51 → M.ORTHSURG 18:51 → M.2W 20:35 → M.ORTHSURG 05-23 12:22
PROVIDERS: Internal Medicine; Nurse Practitioner Psychiatric/Mental Health; ADMIT Internal Medicine
DX: E86.0 Dehydration (principal); E87.1 Hypo-osmolality and hyponatremia; E11.9 Type 2 diabetes mellitus without complications; I50.9 Heart failure, unspecified; E11.51 Type 2 diabetes mellitus with diabetic peripheral angiopathy without gangrene; E83.42 Hypomagnesemia; I11.0 Hypertensive heart disease with heart failure; F17.210 Nicotine dependence, cigarettes, uncomplicated; D64.9 Anemia, unspecified; Z89.512 Acquired absence of left leg below knee; Z86.73 Personal history of transient ischemic attack (TIA), and cerebral infarction without residual deficits; Z88.1 Allergy status to other antibiotic agents; Z83.3 Family history of diabetes mellitus; Z88.8 Allergy status to other drugs, medicaments and biological substances; Z82.49 Family history of ischemic heart disease and other diseases of the circulatory system; Z79.899 Other long term (current) drug therapy

== ENCOUNTER 2018-06-03 19:30 | Emergency (ER) | payer MEDICARE, MEDICAID ==
[~2018-06-03] VITALS: Ht 177.8 cm; Wt 60.3 kg
[~2018-06-03 19:30] MED LIST changes: +SODIUM CHLORIDE1 G2 PO
[2018-06-03 19:36] VITALS: BP 146/75
[2018-06-03] MEDS ORDERED: NORCO 5-325 TA1 EACH PO (19:55)
[2018-06-03] MEDS ORDERED: XANAX 1 MG TABLE1 MG PO (19:55)
== END 2018-06-03 20:06 | disposition home or self-care (01) ==
LOC: M.ERS 19:30
DX: F41.9 Anxiety disorder, unspecified (principal); G89.29 Other chronic pain; E11.9 Type 2 diabetes mellitus without complications; I11.0 Hypertensive heart disease with heart failure; I50.9 Heart failure, unspecified; Z86.2 Personal history of diseases of the blood and blood-forming organs and certain disorders involving the immune mechanism; F17.210 Nicotine dependence, cigarettes, uncomplicated; Z88.8 Allergy status to other drugs, medicaments and biological substances

== ENCOUNTER → 2018-06-07 | Outpatient (CLI) | payer MEDICARE, MEDICAID ==
[~2018-06-07] MED LIST changes: +ATIVAN0.5 MG PO; +LEXAPRO 10 MG T10 M2 PO; +NORCO 5-325 TA1 EACH PO; +ONDANSETRON HCL4 M2 PO; +ROBAXIN 750 MG750 M1 PO; +XANAX 1 MG TABLE1 MG PO
--- NOTE | 2018-06-07 11:30 | 2DMMODE ---
[place] [address] 2 D/M-MODE ECHOCARDIOGRAM Name: CLARA QUINN Room: [facility]#: [id number] Admission: 06/07/18 Attend Phys: Patrick Orellana, Discharge: Date of : 64 Date of Service: 06/07/18 1130 Report #: [id number] THIS REPORT FOR: //name// APPROVED REPORT Study performed: 06/07/2018 10:00:55 EXAM: Comprehensive 2D, Doppler, and color-flow Echocardiogram Patient Location: Out-Patient Status: routine BSA: 1.80 HR: 90 bpm BP: 120/77 mmHg Other Information Study Quality: Good Indications Cardiomyopathy 2D Dimensions LVEF(%): 54.12 (>50%) IVSd: 10.40 (7-11mm) LVOT Diam: 20.58 (18-24mm) LVDd: 45.87 mm PWd: 9.67 (7-11mm) Ascending Ao: 27.09 (22-36mm) LVDs: 33.07 (25-40mm) Aortic Root: 31.01 mm Martinez's LVEF: 54.12 % Volumes Left Atrial Volume (Systole) LA ESV Index: 11.70 mL/m2 Aortic Valve AoV Peak Joshua.: 1.14 m/s AO Peak Gr.: 5.22 mmHg LVOT Max P.47 mmHg AO Mean Gr.: 2.89 mmHg LVOT Mean P.68 mmHg LVOT Max V: 0.93 m/s AO V2 VTI: 19.44 cm LVOT Mean V: 0.60 m/s ROBIN (VTI): 2.54 cm2 LVOT V1 VTI: 14.88 cm Mitral Valve E/A Ratio: 0.70 MV Decel. Time: 273.50 [place] [address] 2 D/M-MODE ECHOCARDIOGRAM Name: CLARA QUINN Room: [facility]#: [id number] Admission: 06/07/18 Attend Phys: Patrick Orellana, Discharge: Date of : 64 Date of Service: 06/07/18 1130 Report #: [id number] MV E Max Joshua.: 0.64 m/s MV PHT: 79.31 ms MVA (PHT): 2.77 cm2 TDI E/Lateral E': 4.92 E/Medial E': 8.00 Medial E' Joshua.: 0.08 m/s Lateral E' Joshua.: 0.13 m/s Pulmonary Valve PV Peak Joshua.: 0.90 m/s PV Peak Gr.: 3.23 mmHg Left Ventricle The left ventricle is normal size. There is distal septal and apical hypo-akinesis There is normal left ventricular wall thickness. Left ventricular systolic function is mildly decreased. LVEF is 45%. Grade I - abnormal relaxation pattern. Right Ventricle The right ventricle is normal size. The right ventricular systolic function is normal. Atria The left atrium size is normal. The right atrium size is normal. Aortic Valve Mild aortic valve sclerosis. No aortic regurgitation is present. There is no aortic valvular stenosis. Mitral Valve The mitral valve is normal in structure. There is no mitral valve regurgitation noted. No evidence of mitral valve stenosis. Tricuspid Valve The tricuspid valve is normal in structure. There is no tricuspid valve regurgitation noted. Pulmonic Valve The pulmonary valve is normal in structure. There is no pulmonic valvular regurgitation. Great Vessels The aortic root is normal in size. IVC is normal in size and collapses with >50% [place] [address] 2 D/M-MODE ECHOCARDIOGRAM Name: CLARA QUINN Room: [facility]#: [id number] Admission: 06/07/18 Attend Phys: Patrick Orellana, Discharge: Date of : 64 Date of Service: 06/07/18 1130 Report #: [id number] Pericardium There is no pericardial effusion. <Conclusion> The left ventricle is normal size. There is normal left ventricular wall thickness. Left ventricular systolic function is mildly decreased. LVEF is 45%. Grade I - abnormal relaxation pattern. The left atrium size is normal. Mild aortic valve sclerosis. No aortic regurgitation is present. There is no aortic valvular stenosis. The mitral valve is normal in structure. The tricuspid valve is normal in structure. IVC is normal in size and collapses with >50% inspiration There is no pericardial effusion. There is distal septal and apical hypo-akinesis <ELECTRONICALLY SIGNED> By: Fabio Jacobs MD, [facility] 06/07/18 1130 1130 1130 Fabio Jacobs MD, FACC /INF
== END ==
LOC: M.WC 04:48
DX: T87.89 Other complications of amputation stump (principal); E11.621 Type 2 diabetes mellitus with foot ulcer; L97.411 Non-pressure chronic ulcer of right heel and midfoot limited to breakdown of skin; E11.622 Type 2 diabetes mellitus with other skin ulcer; L97.311 Non-pressure chronic ulcer of right ankle limited to breakdown of skin; I70.233 Atherosclerosis of native arteries of right leg with ulceration of ankle; E11.51 Type 2 diabetes mellitus with diabetic peripheral angiopathy without gangrene; E11.319 Type 2 diabetes mellitus with unspecified diabetic retinopathy without macular edema; I50.9 Heart failure, unspecified; K21.9 Gastro-esophageal reflux disease without esophagitis; F17.298 Nicotine dependence, other tobacco product, with other nicotine-induced disorders; F14.90 Cocaine use, unspecified, uncomplicated; F12.90 Cannabis use, unspecified, uncomplicated; F11.90 Opioid use, unspecified, uncomplicated; Y83.5 Amputation of limb(s) as the cause of abnormal reaction of the patient, or of later complication, without mention of misadventure at the time of the procedure

== ENCOUNTER 2018-06-17 18:51 | Emergency (ER) | payer MEDICARE, MEDICAID ==
[~2018-06-17] VITALS: Ht 172.7 cm; Wt 60.3 kg
[~2018-06-17 18:51] MED LIST changes: -ATIVAN0.5 MG PO; -LEXAPRO 10 MG T10 M2 PO; -ONDANSETRON HCL4 M2 PO; -ROBAXIN 750 MG750 M1 PO
[2018-06-17] MEDS ORDERED: ATIVAN0.5 MG PO (20:04)
[2018-06-17] MEDS ORDERED: ROBAXIN 750 MG750 M1 PO (20:04)
[2018-06-17 21:18] VITALS: BP 129/71
--- NOTE | 2018-06-22 16:34 | EKG ---
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1960 Requested By: Amilcar Olivas Order Number: [id number] MD: Fabio Jacobs Measurements Intervals [place] Rate: 82 P: 71 FL: 174 QRS: 42 QRSD: 88 T: 80 QT: 343 QTc: 401 Interpretive Statements Sinus rhythm Anteroseptal infarct, old Compared to ECG 05/22/2018 17:43:40 Atrial premature complex(es) no longer present Intraventricular conduction delay no longer present Myocardial infarct finding still present Electronically Signed On 06-22-2018 16:34:36 CDT by Fabio Jacobs [email or web address] <ELECTRONICALLY SIGNED> By: Fabio Jacobs MD, [facility] 06/22/18 1634 1430 1430 Fabio Jacobs MD, [facility] /EPI
== END 2018-06-17 21:19 | disposition home or self-care (01) ==
LOC: M.ERS 18:51
DX: F41.9 Anxiety disorder, unspecified (principal); G89.29 Other chronic pain; M25.512 Pain in left shoulder; M25.552 Pain in left hip; E11.9 Type 2 diabetes mellitus without complications; I11.0 Hypertensive heart disease with heart failure; I50.9 Heart failure, unspecified; I73.9 Peripheral vascular disease, unspecified; F17.210 Nicotine dependence, cigarettes, uncomplicated; Z88.8 Allergy status to other drugs, medicaments and biological substances; Z86.2 Personal history of diseases of the blood and blood-forming organs and certain disorders involving the immune mechanism; Z89.512 Acquired absence of left leg below knee; Z86.73 Personal history of transient ischemic attack (TIA), and cerebral infarction without residual deficits; Z88.1 Allergy status to other antibiotic agents

== ENCOUNTER 2018-06-21 14:17 | Emergency (ER) | payer MEDICARE, MEDICAID ==
[~2018-06-21] VITALS: Ht 157.5 cm; Wt 59.0 kg
[~2018-06-21 14:17] MED LIST changes: +ATIVAN0.5 MG PO; +ROBAXIN 750 MG750 M1 PO
[2018-06-21] MEDS ORDERED: ONDANSETRON HCL4 M2 PO (14:29)
[2018-06-21] MEDS ORDERED: LEXAPRO 10 MG T10 M2 PO (14:29)
[2018-06-21 14:59] LABS: ABSOLUTE EOSINOPHILS 0.2 thou/uL (0.0-0.7); ABSOLUTE LYMPHOCYTES 1.2 thou/uL (0.8-5.3); ABSOLUTE MONOCYTES 0.7 thou/uL (0.0-1.2); ABSOLUTE NEUTROPHILS 4.8 thou/uL (1.6-8.1); BASOPHILS 0.4 %; EOSINOPHILS 3.2 %; HEMATOCRIT 26.4 % (42.0-52.0); HEMOGLOBIN 9.3 gm/dL (14.0-18.0); LYMPHOCYTES 17.5 %; MCH 28.8 pg (26.0-34.0); MCHC 35.3 g/dL (28.0-37.0); MCV 81.7 fL (80.0-100.0); MONOCYTES 9.6 %; MPV 7.9 fl. (7.2-11.1); NUCLEATED RBCS 0 /100WBC; PLATELET COUNT* 122 thou/uL (150-400); POLYS 69.3 %; RBC 3.23 mil/uL (4.50-6.00); RDW-CV 14.1 % (10.5-14.5); WBC 6.9 thou/uL (4.0-11.0)
[2018-06-21 15:09] LABS: CALCIUM 8.5 mg/dL (8.5-10.1); CREATININE 0.7 mg/dL (0.6-1.3); POTASSIUM 4.5 mmol/L (3.5-5.1)
[2018-06-21 15:11] LABS: APTT 31.2 Seconds (25.0-31.3); INR 1.1; PROTIME 11.4 Seconds (9.20-11.50)
[2018-06-21 15:14] LABS: ALBUMIN 3.3 g/dL (3.4-5.0); TOTAL BILIRUBIN 0.2 mg/dL (<0.1-1.0); TOTAL PROTEIN 6.6 g/dL (6.4-8.2)
[2018-06-21] MEDS ORDERED: NORCO 5-325 TA1 EACH PO (15:51)
[2018-06-21 16:00] VITALS: BP 133/75
== END 2018-06-21 16:00 | disposition home or self-care (01) ==
LOC: M.ERS 14:17
PROVIDERS: Family Medicine
DX: S20.212A Contusion of left front wall of thorax, initial encounter (principal); S50.312A Abrasion of left elbow, initial encounter; M25.552 Pain in left hip; E87.1 Hypo-osmolality and hyponatremia; E11.9 Type 2 diabetes mellitus without complications; I11.0 Hypertensive heart disease with heart failure; I50.9 Heart failure, unspecified; F41.9 Anxiety disorder, unspecified; F17.210 Nicotine dependence, cigarettes, uncomplicated; Z88.8 Allergy status to other drugs, medicaments and biological substances; Z86.2 Personal history of diseases of the blood and blood-forming organs and certain disorders involving the immune mechanism; Z89.512 Acquired absence of left leg below knee; Z86.73 Personal history of transient ischemic attack (TIA), and cerebral infarction without residual deficits; V00.811A Fall from moving wheelchair (powered), initial encounter; Y93.89 Activity, other specified; Y92.89 Other specified places as the place of occurrence of the external cause; Y99.8 Other external cause status

== ENCOUNTER → 2018-12-27 | Outpatient (CLI) | payer OTHER, MEDICAID ==
[~2018-12-27] MED LIST changes: +LEXAPRO 10 MG T10 M2 PO; +ONDANSETRON HCL4 M2 PO
--- NOTE | 2018-12-27 14:19 | 2DMMODE ---
[place] [address] 2 D/M-MODE ECHOCARDIOGRAM Name: CLARA QUINN Room: [facility]#: [id number] Admission: 12/27/18 Attend Phys: Maryjane Zambrano, Discharge: Date of : 64 Date of Service: 12/27/18 1419 Report #: [id number] THIS REPORT FOR: //name// APPROVED REPORT Study performed: 12/27/2018 10:32:59 EXAM: Comprehensive 2D, Doppler, and color-flow Echocardiogram Patient Location: Out-Patient BSA: 1.72 HR: 72 bpm BP: 120/77 mmHg Other Information Study Quality: Good Indications Congestive Heart Failure 2D Dimensions IVSd: 10.04 (7-11mm) LVOT Diam: 20.85 (18-24mm) LVDd: 49.02 mm PWd: 9.28 (7-11mm) Ascending Ao: 29.41 (22-36mm) LVDs: 34.25 (25-40mm) Aortic Root: 31.16 mm Volumes Left Atrial Volume (Systole) LA ESV Index: 27.50 mL/m2 Aortic Valve AoV Peak Joshua.: 1.15 m/s AO Peak Gr.: 5.28 mmHg LVOT Max P.53 mmHg AO Mean Gr.: 3.08 mmHg LVOT Mean P.24 mmHg LVOT Max V: 0.80 m/s AO V2 VTI: 24.95 cm LVOT Mean V: 0.51 m/s ROBIN (VTI): 2.85 cm2 LVOT V1 VTI: 20.81 cm Mitral Valve E/A Ratio: 0.77 MV Decel. Time: 157.47 ms MV E Max Joshua.: 0.73 m/s MV PHT: 45.67 ms MVA (PHT): 4.82 cm2 [place] [address] 2 D/M-MODE ECHOCARDIOGRAM Name: CLARA QUINN Room: [facility]#: [id number] Admission: 12/27/18 Attend Phys: Maryjane Zambrano, Discharge: Date of : 64 Date of Service: 12/27/18 1419 Report #: [id number] TDI E/Lateral E': 8.11 E/Medial E': 10.43 Medial E' Joshua.: 0.07 m/s Lateral E' Joshua.: 0.09 m/s Pulmonary Valve PV Peak Joshua.: 0.85 m/s PV Peak Gr.: 2.89 mmHg Left Ventricle The left ventricle is normal size. Regional wall motion abnormalities are noted. akinesis noted of the distal anteroseptal wall and apex There is normal left ventricular wall thickness. Left ventricular systolic function is mildly decreased. LVEF is 35-40%. Grade I - abnormal relaxation pattern. Right Ventricle The right ventricle is normal size. The right ventricular systolic function is normal. Atria The left atrium size is normal. The right atrium size is normal. Aortic Valve Aortic valve is mildly calcified. No aortic regurgitation is present. There is no aortic valvular stenosis. Mitral Valve The mitral valve is normal in structure. Mild mitral regurgitation. No evidence of mitral valve stenosis. Tricuspid Valve The tricuspid valve is normal in structure. There is no tricuspid valve regurgitation noted. Pulmonic Valve The pulmonary valve is normal in structure. Mild pulmonic regurgitation. Great Vessels The aortic root is normal in size. IVC is normal in size and collapses >50% with inspiration. Pericardium There is no peric[place] [address] 2 D/M-MODE ECHOCARDIOGRAM Name: CLARA QUINN Room: [facility]#: [id number] Admission: 12/27/18 Attend Phys: Maryjane Zambrano, Discharge: Date of : 64 Date of Service: 12/27/18 1419 Report #: [id number] <Conclusion> LVEF is 35-40%. Regional wall motion abnormalities are noted. akinesis noted of the distal anteroseptal wall and apex Aortic valve is mildly calcified. Mild mitral regurgitation. <ELECTRONICALLY SIGNED> By: Leonid Earl MD, FACC 12/27/18 1419 1419 18 Leonid Earl MD, [facility] /INF
== END ==
LOC: M.CRD 10:00
DX: I08.8 Other rheumatic multiple valve diseases (principal); I11.0 Hypertensive heart disease with heart failure; I50.9 Heart failure, unspecified; Z88.8 Allergy status to other drugs, medicaments and biological substances

== ENCOUNTER → 2019-02-15 | Outpatient (CLI) | payer OTHER, MEDICAID | LOC: M.NUC 02-13 07:30 | DX: K21.0 Gastro-esophageal reflux disease with esophagitis (principal); K22.70 Barrett's esophagus without dysplasia; K31.89 Other diseases of stomach and duodenum; B18.2 Chronic viral hepatitis C; Z79.01 Long term (current) use of anticoagulants ==

== ENCOUNTER 2019-09-13 21:05 | Inpatient (IN) | payer OTHER, MEDICAID ==
[~2019-09-13] VITALS: Ht 175.3 cm; Wt 64.9 kg
--- NOTE | ~2019-09-13 | OP ---
[address] [address] OPERATIVE REPORT Name: CLARA QUINN Room: [address] IN M.R.#: [id number] Admission: 09/13/19 Attend Phys: Orin Baldwin Discharge: Date of : 64 Report #: [id number] THIS REPORT FOR: //name// CC: Germain Chavez DATE OF SERVICE: 09/19/2019 SURGEON: Alex Klein DPM PREOPERATIVE DIAGNOSIS: Necrotic nonhealing ulceration with deep soft tissue infection and likely osteomyelitis, right foot. POSTOPERATIVE DIAGNOSIS: Necrotic nonhealing ulceration with deep soft tissue infection and likely osteomyelitis, right foot. PROCEDURE: 1. Resection of right distal fourth and fifth metatarsals. 2. Wound debridement of subcutaneous tissue and tendon, right foot. ANESTHESIA: General LMA. INJECTABLES: 27 mL of 0.5% Marcaine plain. ESTIMATED BLOOD LOSS: Roughly 20 mL. TOURNIQUETS: None. SPECIMENS: Right distal fourth and fifth metatarsals. CULTURES: Soft tissue, right foot, aerobic and anaerobic. COMPLICATIONS: None. DESCRIPTION OF PROCEDURE: The patient was brought to the OR and placed on the table supine with induction of general LMA anesthesia well. A local anesthetic block was given and the extremity was prepped and draped aseptically. A #10 blade was utilized to excise eschar and infected subcutaneous tissue and tendons from the exposed wound. The wound was very necrotic, but there was good bleeding throughout the procedure without the use of a tourniquet. A school admissions representative sample of soft tissue was sent for aerobic and anaerobic culture. The distal fourth and fifth metatarsals were yellow and necrotic looking and were exposed within the wound bed and could be visualized prior to any debridement. I removed soft tissue from the shaft of the metatarsals and transected them proximally and sent each [place] [address] OPERATIVE REPORT Name: CLARA QUINN Room: [address] IN [facility].#: [id number] Admission: 09/13/19 Attend Phys: Orin Baldwin Discharge: Date of : 64 Report #: [id number] Electrocautery and Surgicel were used for hemostasis. The wound was flushed with sterile saline with bacitracin irrigant and dried. The Surgicel was applied, followed by Aquacel Ag, fluffs, ABD and Kerlix gauze with Napoleon wrap. The patient left the OR with no pain or complications noted. By: 2257 [id number] Klein DPM /hermelinda
--- NOTE | ~2019-09-13 | CON ---
[address] [address] CONSULTATION Name: CLARA QUINN Room: [address] IN M.R.#: [id number] Admission: 09/13/19 Attend Phys: Orin Baldwin Discharge: Date of : 64 Report #: [id number] THIS REPORT FOR: //name// CC: Germain Chavez DATE OF SERVICE: 09/16/2019 INFECTIOUS DISEASE CONSULTATION REASON FOR CONSULTATION: Right diabetic foot infection. HISTORY OF PRESENT ILLNESS: A 58-year-old white man diabetic since early 20s, required remote amputation, left BKA, then amputation of fourth and right fifth toes, and this has failed and here up lately, he has elected to proceed with right BKA. PAST MEDICAL HISTORY: Diabetes mellitus. Peripheral vascular disease. Remote amputation, left lower extremity; BKA and chronic ulcerations, right foot, possibly not healing due to vascular problems. History of bronchitis. Peripheral vascular disease. Recurrent UTI. DRUG ALLERGIES: DULOXETINE, RESPIRATORY DISTRESS. MEDICATIONS: The patient is currently on treatment with promethazine p.r.n., ondansetron p.r.n., bisacodyl, magnesium hydroxide, magnesium-aluminum hydroxide p.r.n., melatonin p.r.n., Benadryl p.r.n., acetaminophen p.r.n. HOME MEDICATIONS: Ingrezza 40 mg 2 capsules daily, normal saline infusion, sodium and potassium supplementation per protocol, atorvastatin, cholecalciferol, p.r.n. pantoprazole, lactobacillus acidophilus, carvedilol, sertraline, oxybutynin, multivitamins with minerals, Plavix, metformin, insulin lispro, Zosyn 3.375 grams IV every 8 hours, vancomycin 1 gram IV every 12 hours, p.r.n. glucose, glucagon. SOCIAL HISTORY: See H and P, old record. FAMILY HISTORY: See H and P, old record. REVIEW OF SYSTEMS: As above. PHYSICAL EXAMINATION: GENERAL: Chronically ill-appearing white man. VITAL SIGNS: Afebrile since admission, temperature 98, pulse 70, respirations 16, BP 146/75. Height 5 feet 9 inches, weight [address] [place] [address] CONSULTATION Name: CLARA QUINN Room: [address] IN [facility]#: [id number] Admission: 09/13/19 Attend Phys: Orin zimmemran Franklin Discharge: Date of : 64 Report #: [id number] HEENMT: Pupils reactive. Mouth edentulous. NECK: Supple. LUNGS: Clear. HEART: S1, S2. No gallop. ABDOMEN: Laparoscopic cholecystectomy scar, soft, no masses or megaly. PELVIC AND RECTAL: Deferred. EXTREMITIES: Remote left BKA. Stump looks normal. Right foot revealed amputation, right fourth and fifth toes and the area of amputation is open with no granulation tissue, whatsoever. Actually, tissues looked dark. He also has an ulceration on the right heel. LABORATORY DATA: Sodium 136, potassium 5.1, BUN 10, creatinine 0.7, magnesium 1.2, albumin 2.8 g/dL. Iron 20, iron binding capacity 211, percent saturation 9%. Vancomycin trough 17. WBC 7.2, hemoglobin 7.5, platelets 211,000. Prealbumin 12.9 mg/L. MICROBIOLOGY: Pending. RADIOLOGY EVALUATION: MRI of the right foot revealed fourth and fifth toe amputations, soft tissue attenuation. The bone appeared exposed, but there is no abnormal T1 or T2 signal to suggest osteomyelitis. Arterial ultrasound, high-grade focal stenosis, right popliteal artery with subsequent low resistance and low velocity flow in the popliteal artery distally into the foot and ankle. ASSESSMENT: 1. Right diabetic foot infection, chronic ulcerations. Recent amputation fourth and fifth toes and ulceration with lack of granulation tissue and ulceration, right heel: No evidence of osteomyelitis by MRI. 2. Remote left below-knee amputation. 3. Diabetes mellitus. 4. Malnutrition. SUGGESTIONS: Recommend proceed with amputation and shortened course of antibiotic regimen once amputation done. Per Dr. Hughes, thank you for requesting my suggestions in the care of your patient. By: 0558 [id number] Ruiz MD /nt
--- NOTE | ~2019-09-13 | CON ---
[address] [address] CONSULTATION Name: CLARA QUINN Room: [address] IN M.R.#: [id number] Admission: 09/13/19 Attend Phys: Orin Baldiwn Discharge: 09/21/19 Date of : 64 Report #: [id number] THIS REPORT FOR: //name// CC: Germain Chavez CHIEF COMPLAINT: Postoperative day #2 for resection of right distal fourth and fifth metatarsals with wound debridement for osteomyelitis and deep tissue infection. He is on parenteral daptomycin and Zosyn, scheduled for discharge today. He is status post angioplasty ____ status post right SFA and popliteal artery angioplasty with stent. He has been afebrile, improved appetite. Relates low-grade pain to the foot. LABORATORY DATA: WBC 6.6, RBC 2.47, hemoglobin 7.2, hematocrit 21.0, platelets 197. PHYSICAL EXAMINATION: Wound bed has yellow brown fibronecrotic tissue with sparse areas of red granulation. No visible bone. The foot is warm with no pallor or cyanosis. No beto erythema or cellulitis. IMPRESSION: Osteomyelitis with deep tissue infection, right foot, type 2 diabetes mellitus with peripheral arterial disease. PLAN: The wound was cleansed and dressed with Aquacel Ag, ABDs and Kerlix gauze. The patient is to remain nonweightbearing to the extremity. I will follow up with the patient to follow up with one of the wound care doctors at [facility] next week and see Dr. Hercules. I can see patients. I can subsequently see the patient when by Tuesday afternoon when wound clinic is available after the first of the year. By: 1706 0051Dpooja Klein DPM /hermelinda
--- NOTE | ~2019-09-13 | CON ---
[address] [address] CONSULTATION Name: CLARA QUINN Room: [address] IN M.R.#: [id number] Admission: 09/13/19 Attend Phys: Orin Baldwin Discharge: Date of : 64 Report #: [id number] THIS REPORT FOR: //name// CC: Germain Chavez DATE OF SERVICE: 09/16/2019 ADMISSION DIAGNOSIS: Postoperative wound, right foot with cellulitis. HISTORY OF PRESENT ILLNESS: A 58-year-old male admitted from [facility] for worsening right distal foot wound. He had distal transmetatarsal amputation of the right fourth and fifth rays in August 2019, presumably as treatment for osteomyelitis. The patient had left BK amputation in 2011, and he has had a popliteal and tibial angioplasty on 10/05/[address] Moise. He has remained afebrile, relates mild pain to the right foot with palpation. He is on parenteral vancomycin and Zosyn, vancomycin trough was 17 yesterday. Right foot radiographs negative for subcutaneous emphysema or osteolysis. MRI shows mild reactive T2 signal at the lateral margin of the third metatarsal head, likely reactive bone marrow edema. There were no marrow signal abnormalities to the distal fourth or fifth metatarsals to suggest osteomyelitis. Noninvasive arterial Doppler shows high grade focal stenosis to the right popliteal artery. LABORATORY DATA: WBC 7.2, RBC 2.65, hemoglobin 7.5, hematocrit 22.1, platelets 211. BUN 10, creatinine 0.7, glucose 135. PHYSICAL EXAMINATION: There is a large black eschar to the distal lateral aspect of the right foot overlying the partial fourth and fifth ray resection sites. The eschar is firm with no underlying fluctuance or crepitation. There is no drainage or culturable material. There is low-grade inflammation to the eschar margins and dorsal lateral foot indicative of resolving cellulitis. The foot is warm with palpable dorsalis pedis and posterior tibial pulses. There is no pallor, cyanosis or signs of acute vascular embarrassment. +2 nonpitting edema to the lower extremity with hemosiderosis. There is a black eschar to the plantar lateral aspect of the right heel that measures 3 cm diameter. IMPRESSION: Postoperative wound, right foot, type 2 diabetes mellitus, peripheral arterial disease, right heel decubitus ulceration with eschar, venous insufficiency, long-term history of tobacco use. PLAN: The patient would like to salvage his foot if possible. I think it is reasonable to perform debridement and he will likely require further endovascular procedure to the extremity. I would recommend debridement of the eschar and underlying soft tissue with deep cultures[place] [address] CONSULTATION Name: CLARA QUINN Room: [address] IN .R.#: [id number] Admission: 09/13/19 Attend Phys: Orin Baldwin Discharge: Date of : 64 Report #: [id number] to see what their plans are for further vascular workup. I will keep the patient n.p.o. past midnight in anticipation of a foot debridement tomorrow. By: 1315 1942Dpooja Klein DPM /hermelinda
[2019-09-13 21:00] VITALS: BP 147/71
[2019-09-13 22:20] LABS: ABSOLUTE EOSINOPHILS 0.2 thou/uL (0.0-0.7); ABSOLUTE LYMPHOCYTES 0.9 thou/uL (0.8-5.3); ABSOLUTE MONOCYTES 0.7 thou/uL (0.0-1.2); ABSOLUTE NEUTROPHILS 6.9 thou/uL (1.6-8.1); BASOPHILS 0.3 %; EOSINOPHILS 1.9 %; HEMOGLOBIN 8.2 gm/dL (14.0-18.0); LYMPHOCYTES 10.1 %; MCH 28.2 pg (26.0-34.0); MCHC 34.1 g/dL (28.0-37.0); MCV 82.6 fL (80.0-100.0); MONOCYTES 7.9 %; MPV 6.9 fl. (7.2-11.1); NUCLEATED RBCS 0 /100WBC; PLATELET COUNT* 221 thou/uL (150-400); POLYS 79.8 %; RBC 2.91 mil/uL (4.50-6.00); WBC 8.7 thou/uL (4.0-11.0)
[2019-09-13 22:36] LABS: ALBUMIN 2.8 g/dL (3.4-5.0); CALCIUM 9.2 mg/dL (8.5-10.1); CREATININE 0.8 mg/dL (0.6-1.3); POTASSIUM 5.3 mmol/L (3.5-5.1); TOTAL BILIRUBIN 0.2 mg/dL (<0.1-1.0); TOTAL PROTEIN 7.1 g/dL (6.4-8.2)
[2019-09-13] MEDS ORDERED: XANAX1 MG PO (23:54)
[2019-09-14] MEDS ORDERED: PROBIOTIC1 EAC7 PO (00:01)
[2019-09-14] MEDS ORDERED: CARVEDILOL12.5 MG PO (00:01)
[2019-09-14] MEDS ORDERED: VITAMIN C500 M2 PO (00:02)
[2019-09-14] MEDS ORDERED: VITAMIN D32000 UNIT PO (00:04)
[2019-09-14 04:11] LABS: HEMATOCRIT 21.8 % (42.0-52.0); HEMOGLOBIN 7.5 gm/dL (14.0-18.0); MCH 28.3 pg (26.0-34.0); MCHC 34.2 g/dL (28.0-37.0); MCV 82.7 fL (80.0-100.0); MPV 7.6 fl. (7.2-11.1); RBC 2.64 mil/uL (4.50-6.00); RDW-CV 13.8 % (10.5-14.5); WBC 7.5 thou/uL (4.0-11.0)
[2019-09-14 04:18] LABS: CALCIUM 9.1 mg/dL (8.5-10.1); CREATININE 0.9 mg/dL (0.6-1.3); MAGNESIUM 1.3 mg/dL (1.8-2.4); POTASSIUM 5.2 mmol/L (3.5-5.1)
[2019-09-14 08:39] VITALS: BP 140/64
[2019-09-14 16:00] VITALS: BP 117/66
[2019-09-14 19:47] VITALS: BP 152/57
[2019-09-15 04:28] LABS: % SATURATION 9 % (20-39); IRON 20 ug/dL (50-175)
[2019-09-15 08:15] VITALS: BP 135/66
[2019-09-15 20:01] VITALS: BP 146/75
[2019-09-16 04:27] LABS: HEMATOCRIT 22.1 % (42.0-52.0); HEMOGLOBIN 7.5 gm/dL (14.0-18.0); MCH 28.2 pg (26.0-34.0); MCHC 33.8 g/dL (28.0-37.0); MCV 83.6 fL (80.0-100.0); MPV 7.5 fl. (7.2-11.1); RBC 2.65 mil/uL (4.50-6.00); RDW-CV 14.2 % (10.5-14.5); WBC 7.2 thou/uL (4.0-11.0)
[2019-09-16 04:51] LABS: CALCIUM 9.1 mg/dL (8.5-10.1); CREATININE 0.7 mg/dL (0.6-1.3); MAGNESIUM 1.2 mg/dL (1.8-2.4); POTASSIUM 5.1 mmol/L (3.5-5.1)
[2019-09-16 08:30] VITALS: BP 145/65
[2019-09-16 19:15] VITALS: BP 155/79
[2019-09-17] VITALS (13 sets, daily range): BP systolic 121–159; BP diastolic 55–77
[2019-09-17 03:47] LABS: HEMATOCRIT 22.6 % (42.0-52.0); HEMOGLOBIN 7.6 gm/dL (14.0-18.0); MCH 28.3 pg (26.0-34.0); MCHC 33.8 g/dL (28.0-37.0); MCV 83.6 fL (80.0-100.0); MPV 7.5 fl. (7.2-11.1); RBC 2.7 mil/uL (4.50-6.00); WBC 7.6 thou/uL (4.0-11.0)
--- NOTE | 2019-09-17 14:51 | OP ---
[address] [address] OPERATIVE REPORT Name: CLARA QUINN Room: [address] IN M.R.#: [id number] Admission: 09/13/19 Attend Phys: Orin Baldwin Discharge: Date of : 64 Report #: [id number] THIS REPORT FOR: //name// CC: Germain Chavez DATE OF SERVICE: 09/17/2019 PREOPERATIVE DIAGNOSIS: Nonhealing ulcer, right foot. POSTOPERATIVE DIAGNOSIS: Nonhealing ulcer, right foot. PROCEDURES: 1. Aortogram runoff, right lower extremity. 2. Ultrasound guidance for arterial access left common femoral artery with image saved. 3. Atherectomy, right femoral popliteal artery. 4. Angioplasty, right tibial arteries. 5. Angioplasty and stent, right popliteal, superficial femoral arteries. 6. Drug-coated balloon angioplasty, right below-knee popliteal artery. FINDINGS ON ARTERIOGRAM: 1. Aorta and iliac arteries, widely patent bilaterally. 2. Bilateral common femoral and profunda femoris arteries, widely patent. 3. The right SFA is diffusely diseased from its midportion down to and through the popliteal artery at the knee. It occludes at the adductor canal and reconstitutes at the knee. Below the knee, the popliteal artery has severe stenosis. There is single vessel runoff to the right foot through the right peroneal artery. Posterior tibial artery is not identified in the study. Anterior tibial artery occludes just distal to its origin and reconstitutes in midcalf. After intervention, there is widely patent flow through the right superficial femoral artery, popliteal and tibioperoneal trunk into the peroneal artery. SURGEON: Nestor Niño MD FOUNDRY MOLDER: Bakari Garcia. COMPLICATIONS: None. ESTIMATED BLOOD LOSS: Minimal. ANESTHESIA: [place] [address] OPERATIVE REPORT Name: KAICLARA Room: [address] IN [facility]#: [id number] Admission: 09/13/19 Attend Phys: Orin Baldwin Discharge: Date of : 64 Report #: [id number] INDICATIONS FOR PROCEDURE: The patient is a very pleasant 58-year-old white male well known to our service. He is status post left below-knee amputation. He now has nonhealing diabetic foot wound of his right foot. He is scheduled to undergo debridement of this tomorrow in the OR with Dr. Dee. He has severe arterial insufficiency of his right leg. We plan to proceed with revascularization to improve his chance of healing his right foot ulcers. Informed consent was obtained from the patient with risks including but not limited to bleeding, infection, need for further surgery, pain, , heart attack, stroke, amputation. The patient understood these risks and was agreeable to proceed. DESCRIPTION OF PROCEDURE: The patient was taken to the angio suite, placed in supine position. After adequate sedation was initiated, timeout was performed. The patient's left groin was prepped and draped. I infused 10 mL of 1% lidocaine into the left groin. Under ultrasound guidance with an image saved, I cannulated the left common femoral artery without difficulty. I used Seldinger technique to exchange out for a 6-Kyrgyz sheath. I passed Omni-Flush catheter into the abdominal aorta and performed aortogram with runoff with findings noted above. I selectively cannulated the right iliac system and placed up and over 6-Kyrgyz sheath. I selectively cannulated the right SFA. I prepped a Crosser atherectomy catheter. I performed Crosser atherectomy of the occluded right distal SFA and popliteal arteries. I reenter the true lumen at the level of the below-knee popliteal artery. I confirmed reentry with a distal angiogram. I angioplastied the occluded segment. Completion imaging showed residual stenosis and dissection through this area. I realigned this area with a 6 x 200 and 6 x 150 LifeStent. I post-dilated these with a 5 mm balloon. I did excellent result with resolution of stenosis on completion imaging. The below-knee popliteal artery still had some residual stenosis. I performed Drug-coated balloon angioplasty of the below-knee popliteal artery using a 4 x 40 Lutonix balloon. I prepped the balloon according to bellhop captain's instructions and deployed it for the recommended treatment length of time. There is some stenosis of the origin of the peroneal artery, which is the main runoff to the foot. I ballooned this with 3 mm balloon with excellent result. I removed my sheath and wire, placed a 6-Kyrgyz Angio-Seal without complication. There was no bleeding or hematoma. The patient tolerated the procedure well and was taken alert and awake to recovery room in good condition. All needle and instrument counts were correct at the end of the case. <ELECTRONICALLY SIGNED> By: Nestor Niño MD 09/17/19 1451 1412 1447Nestor Niño MD /nt
[2019-09-18 00:22] VITALS: BP 128/71
[2019-09-18 03:59] VITALS: BP 146/63
[2019-09-18 04:05] LABS: HEMATOCRIT 20.7 % (42.0-52.0); HEMOGLOBIN 7.1 gm/dL (14.0-18.0); MCH 28.7 pg (26.0-34.0); MCHC 34.5 g/dL (28.0-37.0); MCV 83.2 fL (80.0-100.0); MPV 6.9 fl. (7.2-11.1); RBC 2.49 mil/uL (4.50-6.00); RDW-CV 14.1 % (10.5-14.5); WBC 7.6 thou/uL (4.0-11.0)
[2019-09-18 04:28] LABS: CALCIUM 8.5 mg/dL (8.5-10.1); CREATININE 0.7 mg/dL (0.6-1.3); PHOSPHORUS* 3.9 mg/dL (2.5-4.9); POTASSIUM 4.2 mmol/L (3.5-5.1)
[2019-09-18 07:30] VITALS: BP 144/79
[2019-09-18 10:00] VITALS: BP 106/53; BP 119/89; BP 124/64; BP 135/66; BP 141/64
[2019-09-18 16:00] VITALS: BP 136/58
[2019-09-18 20:00] VITALS: BP 130/60
[2019-09-19 08:15] VITALS: BP 139/64
[2019-09-19 11:18] VITALS: BP 139/64
--- NOTE | 2019-09-19 14:16 | EKG ---
[place] [address] ELECTROCARDIOGRAM REPORT Name: CLARA QUINN Room: [address] ADM IN M.R.#: [id number] Admission: 09/13/19 Attend Phys: Orin Baldwin Discharge: Date of : 64 Report #: [id number] THIS REPORT FOR: //name// [facility] Test Date: 2019-09-19 Test Time: 12:02:05 Pat Name: CLARA QUINN Department: Room: [address] Gender: M First Aid Attendant: : 1960 Requested By: Alex Klein Order Number: [id number] Devonte MD: Fabio Jacobs Measurements Intervals [place] Rate: 73 P: 76 NH: 176 QRS: 61 QRSD: 95 T: -43 QT: 409 QTc: 451 Interpretive Statements Sinus rhythm Nonspecific T abnormalities, inferior leads Baseline wander in lead(s) II,III,aVF Compared to ECG 06/21/2018 14:30:48 T-wave abnormality now present Myocardial infarct finding no longer present Electronically Signed On 09-19-2019 14:16:38 MICROFILM EQUIPMENT INSPECTOR by Fabio Jacobs [email or web address] <ELECTRONICALLY SIGNED> By: Fabio Jacobs MD, [facility] 09/19/19 1416 1202 1202 Fabio Jacobs MD, [facility] /EPI
[2019-09-19 15:30] VITALS: BP 137/61
[2019-09-19 17:54] VITALS: BP 139/64
[2019-09-19 23:25] VITALS: BP 155/75
[2019-09-20 04:00] VITALS: BP 152/72
[2019-09-20 05:17] LABS: HEMATOCRIT 23.3 % (42.0-52.0); HEMOGLOBIN 8.1 gm/dL (14.0-18.0); MCH 29.5 pg (26.0-34.0); MCHC 34.8 g/dL (28.0-37.0); MCV 84.8 fL (80.0-100.0); MPV 7.4 fl. (7.2-11.1); RBC 2.75 mil/uL (4.50-6.00); RDW-CV 14.3 % (10.5-14.5); WBC 9.6 thou/uL (4.0-11.0)
[2019-09-20 05:27] LABS: CALCIUM 8.6 mg/dL (8.5-10.1); CREATININE 0.6 mg/dL (0.6-1.3); MAGNESIUM 1.4 mg/dL (1.8-2.4); POTASSIUM 4.6 mmol/L (3.5-5.1)
[2019-09-20 08:15] VITALS: BP 124/58
[2019-09-20 21:12] VITALS: BP 144/77
[2019-09-21] VITALS (8 sets, daily range): BP systolic 130–137; BP diastolic 63–67
[2019-09-21 07:27] LABS: HEMOGLOBIN 7.2 gm/dL (14.0-18.0); MCH 29.1 pg (26.0-34.0); MCHC 34.3 g/dL (28.0-37.0); MCV 84.8 fL (80.0-100.0); MPV 7.5 fl. (7.2-11.1); RBC 2.47 mil/uL (4.50-6.00); RDW-CV 14.5 % (10.5-14.5); WBC 6.6 thou/uL (4.0-11.0)
[2019-09-21 07:44] LABS: CALCIUM 8.5 mg/dL (8.5-10.1); CREATININE 0.8 mg/dL (0.6-1.3); MAGNESIUM 1.4 mg/dL (1.8-2.4); POTASSIUM 4.1 mmol/L (3.5-5.1)
[2019-09-21] MEDS ORDERED: HYDROCODON-ACE1 EAC7 PO (08:01)
[2019-09-21] MEDS ORDERED: CIPRO500 M1 PO (17:19)
--- NOTE | 2019-09-24 15:07 | PATH ---
[address] [address] PATHOLOGY RPT PROCEDURE Name: RALPH VOSS Room: [address] IN M.R.#: [id number] Admission: 09/13/19 Date of : 64 Discharge: 09/21/19 Report #: [id number] Path Case #: [id number] [facility] Accession Number: [id number] . 01 Material submitted: . PART A: toe - RIGHT FIFTH METATARSAL. Modifiers: right, fifth PART B: toe - RIGHT FOURTH METATARSAL. Modifiers: right, fourth . 01 Clinical history: . Osteomyelitis . 02 Diagnosis: A. Right fifth metatarsal: - Benign bone segment with extensive acute osteomyelitis at jagged end and with evidence of low-grade osteomyelitis involving opposite transection/black inked end, and with attached benign fibrofatty soft tissue showing extensive acute inflammation and necrosis. . B. Right fourth metatarsal: - Benign bone segment with prominent osteomyelitis at smaller (non-inked) end, with opposite transection (black inked) end free of osteomyelitis. - Attached benign fibrofatty soft tissue and atrophic skeletal muscle with minimal chronic inflammation. (COSTA:pit; 09/24/2019) QTP 09/24/2019 1229 Local . 02 Electronically signed: . Santos Reyez MD, Pathologist NPI- [id number] . 01 Gross description: . A. The specimen is received in formalin, labeled "Ralph Voss, right fifth metatarsal". Received is a segment of bone measuring 2.8 x 1.6 x 1.3 cm in greatest dimensions. One margin is blunt in appearance, consistent with transection, and is inked black. The opposite margin is jagged in appearance. A full length longitudinal cross-section is submitted in cassette A1, following decalcification. . B. The specimen is received in formalin, labeled "Ralph Voss, right fourth metatarsal". Received is a segment of bone measuring 3.5 x 1.6 x 1.1 cm in greatest dimensions. Both margins are blunt in appearance, consistent with transection. The larger bone margin is differentially inked black. A full-thickness longitudinal cross-section is submitted from inked to non-inked aspects in cassettes B1 and B2, following decalcification. (CAA; 09/21/2019) QA/[facility] 09/24/2019 1226 Local . [address] [place] [address] PATHOLOGY RPT PROCEDURE Name: RALPH VOSS Room: [address] IN .R.#: [id number] Admission: 09/13/19 Date of : 64 Discharge: 09/21/19 Report #: [id number] Path Case #: [id number] Pathologist provided ICD-10: M86.171, M79.89 . 02 CPT . 419197, 914463, [id number], 164877 Specimen Comment: A courtesy copy of this report has been sent to [phone] Specimen Comment: [phone], , Specimen Comment: Report sent to , , Specimen Comment: and Dr.DE ALFRED FERRER Performed at: [address] [facility] [address], [place] [address] MD Scott Servin MD Phone: [phone] [facility]formed at: [facility] [address], [place], [place] [id number] MD Santos Reyez MD Phone: [phone]
== END 2019-09-21 18:42 | disposition home health service (06) | DRG 271 ==
LOC: M.2W 21:05 → M.TBA-ER 21:11 → M.ORTHSURG 21:11
PROVIDERS: Internal Medicine; Surgery Vascular Surgery; ADMIT Family Medicine
PROC: 047R3ZZ Dilation of Right Posterior Tibial Artery, Percutaneous Approach (ICD-10-PCS; principal; 2019-09-17)
PROC: 047M3D1 Dilation of Right Popliteal Artery with Intraluminal Device, using Drug-Coated Balloon, Percutaneous Approach (ICD-10-PCS; principal; 2019-09-17)
PROC: 04CK3ZZ Extirpation of Matter from Right Femoral Artery, Percutaneous Approach (ICD-10-PCS; principal; 2019-09-17)
PROC: 047K3DZ Dilation of Right Femoral Artery with Intraluminal Device, Percutaneous Approach (ICD-10-PCS; principal; 2019-09-17)
PROC: 047M3DZ Dilation of Right Popliteal Artery with Intraluminal Device, Percutaneous Approach (ICD-10-PCS; principal; 2019-09-17)
PROC: 04CM3ZZ Extirpation of Matter from Right Popliteal Artery, Percutaneous Approach (ICD-10-PCS; principal; 2019-09-17)
PROC: 30233N1 Transfusion of Nonautologous Red Blood Cells into Peripheral Vein, Percutaneous Approach (ICD-10-PCS; 2019-09-18)
PROC: 0QTN0ZZ Resection of Right Metatarsal, Open Approach (ICD-10-PCS; 2019-09-19)
PROC: 05HY33Z Insertion of Infusion Device into Upper Vein, Percutaneous Approach (ICD-10-PCS; 2019-09-20)
DX: I70.201 Unspecified atherosclerosis of native arteries of extremities, right leg (principal); E44.0 Moderate protein-calorie malnutrition; M86.8X7 Other osteomyelitis, ankle and foot; D62 Acute posthemorrhagic anemia; E11.69 Type 2 diabetes mellitus with other specified complication; E11.51 Type 2 diabetes mellitus with diabetic peripheral angiopathy without gangrene; E11.621 Type 2 diabetes mellitus with foot ulcer; L97.514 Non-pressure chronic ulcer of other part of right foot with necrosis of bone; I87.2 Venous insufficiency (chronic) (peripheral); L89.619 Pressure ulcer of right heel, unspecified stage; F41.9 Anxiety disorder, unspecified; I25.10 Atherosclerotic heart disease of native coronary artery without angina pectoris; E83.42 Hypomagnesemia; B96.5 Pseudomonas (aeruginosa) (mallei) (pseudomallei) as the cause of diseases classified elsewhere; I11.0 Hypertensive heart disease with heart failure; B95.62 Methicillin resistant Staphylococcus aureus infection as the cause of diseases classified elsewhere; I50.9 Heart failure, unspecified; Z88.1 Allergy status to other antibiotic agents; Z88.8 Allergy status to other drugs, medicaments and biological substances; Z89.512 Acquired absence of left leg below knee; Z82.49 Family history of ischemic heart disease and other diseases of the circulatory system; Z83.3 Family history of diabetes mellitus; Z87.891 Personal history of nicotine dependence; Z95.5 Presence of coronary angioplasty implant and graft; Z89.421 Acquired absence of other right toe(s); Z86.73 Personal history of transient ischemic attack (TIA), and cerebral infarction without residual deficits; Z68.21 Body mass index [BMI] 21.0-21.9, adult

== ENCOUNTER 2019-09-22 14:37 | Emergency (ER) | payer OTHER, MEDICAID ==
[~2019-09-22] VITALS: Ht 167.6 cm; Wt 68.0 kg
[~2019-09-22 14:37] MED LIST changes: +CARVEDILOL12.5 MG PO; +CIPRO500 M1 PO; +PROBIOTIC1 EAC7 PO; +VITAMIN C500 M2 PO; +VITAMIN D32000 UNIT PO; +XANAX1 MG PO
[2019-09-22 14:45] VITALS: BP 143/65
== END 2019-09-22 15:28 | disposition home or self-care (01) ==
LOC: M.ERS 14:37
DX: T82.898A Other specified complication of vascular prosthetic devices, implants and grafts, initial encounter (principal); I11.0 Hypertensive heart disease with heart failure; I50.9 Heart failure, unspecified; E11.9 Type 2 diabetes mellitus without complications; F41.9 Anxiety disorder, unspecified; F17.210 Nicotine dependence, cigarettes, uncomplicated; Z95.5 Presence of coronary angioplasty implant and graft; Z86.2 Personal history of diseases of the blood and blood-forming organs and certain disorders involving the immune mechanism; Z90.49 Acquired absence of other specified parts of digestive tract; Z86.73 Personal history of transient ischemic attack (TIA), and cerebral infarction without residual deficits; Z88.1 Allergy status to other antibiotic agents; Z88.8 Allergy status to other drugs, medicaments and biological substances; Y83.8 Other surgical procedures as the cause of abnormal reaction of the patient, or of later complication, without mention of misadventure at the time of the procedure; Y92.89 Other specified places as the place of occurrence of the external cause

== ENCOUNTER → 2019-10-10 | Outpatient (CLI) | payer MEDICARE, MEDICAID ==
--- NOTE | 2019-10-11 12:18 | CON ---
[address] [address] CONSULTATION Name: CLARA QUINN Room: [facility]#: [id number] Admission: 10/10/19 Attend Phys: Alex Klein DPM Discharge: Date of : 64 Report #: [id number] THIS REPORT FOR: //name// CC: Alex Bermudez DATE OF SERVICE: 10/10/2019 INFECTIOUS DISEASE CONSULTATION AND FOLLOWUP ATTENDING PHYSICIAN: Alex Klein DPM HISTORY OF PRESENT ILLNESS: He is [facility]. The patient returns today in followup, having been hospitalized and underwent lateral right foot resection involving the fifth and fourth metatarsals distal aspect due to chronic osteomyelitis. Additionally, he has a wound over the plantar posterior aspect of his heel as well due to pressure related issues. During the hospitalization, confirmed to have polymicrobial growth on operative culture including gram-negative, specifically Pseudomonas as well as MRSA. He has been on therapy at this point with parenteral daptomycin as well as oral ciprofloxacin. He has completed roughly 2 weeks. Generally, he has been doing well. Denies any significant pain or discomfort, although he does have peripheral neuropathy. He has not had systemic illness, no fevers or chills. He states his appetite and his oral intake has been reasonably good. On examination, the wound does have increased granulation tissue. There is a moderate degree of slough and debris. Dr. Klein did debride it. It was quite improved. The overall degree of inflammation is decreased as well at the surface. ASSESSMENT AND PLAN: Osteomyelitis. We will continue current therapy. We will see him initially on a weekly basis. He will need the daptomycin as well as the ciprofloxacin. We will check weekly labs. He was encouraged to optimize his nutritional status. <ELECTRONICALLY SIGNED> By: Dominick Sy MD 10/11/19 1218 0834 0918Jomarques Sy MD /nt
== END ==
LOC: M.WC 13:44
DX: T87.89 Other complications of amputation stump (principal); E11.621 Type 2 diabetes mellitus with foot ulcer; L97.515 Non-pressure chronic ulcer of other part of right foot with muscle involvement without evidence of necrosis; L97.415 Non-pressure chronic ulcer of right heel and midfoot with muscle involvement without evidence of necrosis; E11.622 Type 2 diabetes mellitus with other skin ulcer; I70.233 Atherosclerosis of native arteries of right leg with ulceration of ankle; L97.311 Non-pressure chronic ulcer of right ankle limited to breakdown of skin; E11.69 Type 2 diabetes mellitus with other specified complication; M86.8X7 Other osteomyelitis, ankle and foot; I50.9 Heart failure, unspecified; K21.9 Gastro-esophageal reflux disease without esophagitis; F17.298 Nicotine dependence, other tobacco product, with other nicotine-induced disorders; F12.90 Cannabis use, unspecified, uncomplicated; F14.90 Cocaine use, unspecified, uncomplicated; Z89.512 Acquired absence of left leg below knee; Z95.828 Presence of other vascular implants and grafts; Y83.5 Amputation of limb(s) as the cause of abnormal reaction of the patient, or of later complication, without mention of misadventure at the time of the procedure

== ENCOUNTER → 2019-10-17 | Outpatient (CLI) | payer MEDICARE, MEDICAID ==
--- NOTE | 2019-10-18 11:54 | CON ---
[address] [address] CONSULTATION Name: CLARA QUINN Room: [facility] Herb.#: [id number] Admission: 10/17/19 Attend Phys: Alex Klein DPM Discharge: Date of : 64 Report #: [id number] THIS REPORT FOR: //name// CC: Alex Bermudez DATE OF SERVICE: 10/17/2019 INFECTIOUS DISEASE CONSULTATION AND FOLLOWUP ATTENDING PHYSICIAN: Alex Klein DPM HISTORY: The patient returns in followup of chronic osteomyelitis involving the lateral aspect of the right foot involving the fifth metatarsal post-ostectomy. He had several other wounds as well including a pressure-related ulcer involving the posterior plantar heel. He generally denies any significant pain or discomfort, although he does have peripheral neuropathy. On examination, the wound actually appears improved, dry, overall less degree of inflammation noted at the site. ASSESSMENT AND PLAN: Chronic osteomyelitis. At this point, would plan as prescribed 4-5 weeks of treatment for an additional week, combination of daptomycin as well as oral vancomycin for polymicrobial growth including methicillin-resistant Staphylococcus aureus, Pseudomonas. Wound care as prescribed by Dr. Klein expectantly. He is to call if problems or concerns. We will see him in [address] Klein. <ELECTRONICALLY SIGNED> By: Dominick Sy MD 10/18/19 1154 2134 0031Jomarques Sy MD /hermelinda
== END ==
LOC: M.WC 07:21
DX: T87.89 Other complications of amputation stump (principal); E11.621 Type 2 diabetes mellitus with foot ulcer; L97.516 Non-pressure chronic ulcer of other part of right foot with bone involvement without evidence of necrosis; L97.415 Non-pressure chronic ulcer of right heel and midfoot with muscle involvement without evidence of necrosis; E11.622 Type 2 diabetes mellitus with other skin ulcer; I70.233 Atherosclerosis of native arteries of right leg with ulceration of ankle; L97.312 Non-pressure chronic ulcer of right ankle with fat layer exposed; E11.319 Type 2 diabetes mellitus with unspecified diabetic retinopathy without macular edema; I50.9 Heart failure, unspecified; K21.9 Gastro-esophageal reflux disease without esophagitis; E11.42 Type 2 diabetes mellitus with diabetic polyneuropathy; E11.51 Type 2 diabetes mellitus with diabetic peripheral angiopathy without gangrene; F17.298 Nicotine dependence, other tobacco product, with other nicotine-induced disorders; Z72.89 Other problems related to lifestyle; F14.90 Cocaine use, unspecified, uncomplicated; F12.90 Cannabis use, unspecified, uncomplicated; F11.90 Opioid use, unspecified, uncomplicated; Z95.828 Presence of other vascular implants and grafts; Y83.5 Amputation of limb(s) as the cause of abnormal reaction of the patient, or of later complication, without mention of misadventure at the time of the procedure

== ENCOUNTER → 2019-10-24 | Outpatient (CLI) | payer MEDICARE, MEDICAID ==
--- NOTE | 2019-10-25 12:03 | CON ---
[address] [address] CONSULTATION Name: CLARA QUINN Room: [facility].#: [id number] Admission: 10/24/19 Attend Phys: Alex Klein DPM Discharge: Date of : 64 Report #: [id number] THIS REPORT FOR: //name// CC: Alex Bermudez DATE OF SERVICE: 10/24/2019 INFECTIOUS DISEASE CONSULTATION ATTENDING PHYSICIAN: Alex Klein DPM. HISTORY OF PRESENT ILLNESS: [facility] Ongoing treatment for right foot lateral ulcer as well as a heel ulcer. Generally, he has been doing better. He denies significant amount of pain or discomfort associated with the site. He has not had systemic illness. His appetite has been somewhat variable. PHYSICAL EXAMINATION: On examination, he does have a persistent exposed bone that was removed with a rongeur by Dr. Klein and then the bleeding tissue. Overall, the foot has less inflammation. ASSESSMENT AND PLAN: Chronic osteomyelitis. At this point, we would extend the combination therapy with daptomycin as well as ciprofloxacin at least 1 additional week. We will see him back at that time. Continue wound care with the wound VAC optimize his nutritional status. <ELECTRONICALLY SIGNED> By: Dominick Sy MD 10/25/19 1203 [id number] [id number] Sy MD /nt
== END ==
LOC: M.WC 05:10
DX: T87.89 Other complications of amputation stump (principal); E11.621 Type 2 diabetes mellitus with foot ulcer; L97.516 Non-pressure chronic ulcer of other part of right foot with bone involvement without evidence of necrosis; L97.415 Non-pressure chronic ulcer of right heel and midfoot with muscle involvement without evidence of necrosis; E11.622 Type 2 diabetes mellitus with other skin ulcer; I70.233 Atherosclerosis of native arteries of right leg with ulceration of ankle; L97.312 Non-pressure chronic ulcer of right ankle with fat layer exposed; E11.42 Type 2 diabetes mellitus with diabetic polyneuropathy; E11.51 Type 2 diabetes mellitus with diabetic peripheral angiopathy without gangrene; I50.9 Heart failure, unspecified; K21.9 Gastro-esophageal reflux disease without esophagitis; F14.90 Cocaine use, unspecified, uncomplicated; F17.298 Nicotine dependence, other tobacco product, with other nicotine-induced disorders; F12.90 Cannabis use, unspecified, uncomplicated; F11.90 Opioid use, unspecified, uncomplicated; Z72.89 Other problems related to lifestyle; Z95.818 Presence of other cardiac implants and grafts; Y83.5 Amputation of limb(s) as the cause of abnormal reaction of the patient, or of later complication, without mention of misadventure at the time of the procedure

== ENCOUNTER → 2019-10-31 | Outpatient (CLI) | payer MEDICARE, MEDICAID ==
--- NOTE | 2019-11-01 11:33 | CON ---
[address] [address] CONSULTATION Name: CLARA QUINN Room: [facility].#: [id number] Admission: 10/31/19 Attend Phys: Alex Klein DPM Discharge: Date of : 64 Report #: [id number] THIS REPORT FOR: //name// CC: Alex Bermudez DATE OF SERVICE: 10/31/2019 INFECTIOUS DISEASE CONSULTATION FOLLOWUP ATTENDING PHYSICIAN: Alex Klein DPM HISTORY OF PRESENT ILLNESS: He is here for followup right foot wounds in the setting of deep infection including osteomyelitis involving the lateral aspect fifth metatarsal. He is post-osteoectomy. On evaluation of the wound, at this point, continues to decrease in overall dimension. On examination, per Dr. Klein, there is no exposed bone at this point, he had removed some last week, awaiting that path report. He has generally been doing fairly well. He completed upwards of 6-7 weeks of parenteral therapy in combination including Cipro and daptomycin for polymicrobial growth including Pseudomonas, MRSA. On questioning, he denies any particular discomfort locally. He has not been systemically ill. He states that his appetite has been reasonably good. ASSESSMENT AND PLAN: Osteomyelitis. At this point, we would discontinue the antibiotics. We will maintain the IV until he is seen next week and see how he does. It is discussed with the patient who is in agreement as well as Dr. Klein. <ELECTRONICALLY SIGNED> By: Dominick Sy MD 11/01/19 1133 0855 [id number] Sy MD /nt
== END ==
LOC: M.WC 04:33
DX: T87.89 Other complications of amputation stump (principal); E11.621 Type 2 diabetes mellitus with foot ulcer; L97.512 Non-pressure chronic ulcer of other part of right foot with fat layer exposed; L97.412 Non-pressure chronic ulcer of right heel and midfoot with fat layer exposed; I70.233 Atherosclerosis of native arteries of right leg with ulceration of ankle; L97.311 Non-pressure chronic ulcer of right ankle limited to breakdown of skin; E11.319 Type 2 diabetes mellitus with unspecified diabetic retinopathy without macular edema; E11.51 Type 2 diabetes mellitus with diabetic peripheral angiopathy without gangrene; E11.69 Type 2 diabetes mellitus with other specified complication; M86.8X7 Other osteomyelitis, ankle and foot; I50.9 Heart failure, unspecified; K21.9 Gastro-esophageal reflux disease without esophagitis; F14.90 Cocaine use, unspecified, uncomplicated; F17.298 Nicotine dependence, other tobacco product, with other nicotine-induced disorders; F12.90 Cannabis use, unspecified, uncomplicated; F11.90 Opioid use, unspecified, uncomplicated; Z95.828 Presence of other vascular implants and grafts; Z72.89 Other problems related to lifestyle; Y83.5 Amputation of limb(s) as the cause of abnormal reaction of the patient, or of later complication, without mention of misadventure at the time of the procedure

== ENCOUNTER → 2019-11-14 | Outpatient (CLI) | payer MEDICARE, MEDICAID ==
--- NOTE | 2019-11-15 14:04 | CON ---
[address] [address] CONSULTATION Name: KAICLARA Ranjeet Room: [facility]#: [id number] Admission: 11/14/19 Attend Phys: Alex Klein DPM Discharge: Date of : 64 Report #: [id number] THIS REPORT FOR: //name// cc: Roni Bermudez MD, Jason C. MD ~ THIS REPORT FOR: //name// CC: Alex Bermudez DATE OF SERVICE: 11/14/2019 INFECTIOUS DISEASE CONSULTATION ATTENDING PHYSICIAN: Alex Klein DPM HISTORY OF PRESENT ILLNESS: He is here for deep infection involving his right foot, chronic osteomyelitis, post-osteoectomy. He has still several wounds including the lateral aspect of his foot. Generally, he is doing well. Subjectively, he denies significant amount of pain or discomfort. He has not been systemically ill. He states he has been eating well. On evaluation, the wounds continue to improve. There is good granulation tissue throughout. There is no exposed hard tissue or bone. It is minimal degree of inflammation superficially. ASSESSMENT AND PLAN: Deep infection, osteomyelitis. At this point, he has been off the antibiotics for a number of days. The PICC line is actually out. Discussed with Dr. Klein. I do not think there is need to extend any antibiotics at this point. He should use some topical treatment as he prescribes. We will be available as needed. At this point, we would follow from a distance. <ELECTRONICALLY SIGNED> By: Dominick Sy MD 11/15/19 1404 0919 [id number] Sy MD /nt
== END ==
LOC: M.WC 01:35
DX: T87.89 Other complications of amputation stump (principal); E11.621 Type 2 diabetes mellitus with foot ulcer; L97.512 Non-pressure chronic ulcer of other part of right foot with fat layer exposed; L97.412 Non-pressure chronic ulcer of right heel and midfoot with fat layer exposed; E11.622 Type 2 diabetes mellitus with other skin ulcer; I70.233 Atherosclerosis of native arteries of right leg with ulceration of ankle; L97.311 Non-pressure chronic ulcer of right ankle limited to breakdown of skin; I50.9 Heart failure, unspecified; K21.9 Gastro-esophageal reflux disease without esophagitis; F12.90 Cannabis use, unspecified, uncomplicated; F14.90 Cocaine use, unspecified, uncomplicated; F11.90 Opioid use, unspecified, uncomplicated; F17.298 Nicotine dependence, other tobacco product, with other nicotine-induced disorders; Z95.828 Presence of other vascular implants and grafts; Z72.89 Other problems related to lifestyle; Y83.5 Amputation of limb(s) as the cause of abnormal reaction of the patient, or of later complication, without mention of misadventure at the time of the procedure

== ENCOUNTER → 2019-11-21 | Outpatient (CLI) | payer MEDICARE, MEDICAID | LOC: M.WC 00:22 | DX: T87.89 Other complications of amputation stump (principal); E11.621 Type 2 diabetes mellitus with foot ulcer; L97.512 Non-pressure chronic ulcer of other part of right foot with fat layer exposed; L97.412 Non-pressure chronic ulcer of right heel and midfoot with fat layer exposed; E11.622 Type 2 diabetes mellitus with other skin ulcer; I70.233 Atherosclerosis of native arteries of right leg with ulceration of ankle; L97.311 Non-pressure chronic ulcer of right ankle limited to breakdown of skin; E11.319 Type 2 diabetes mellitus with unspecified diabetic retinopathy without macular edema; I50.9 Heart failure, unspecified; K21.9 Gastro-esophageal reflux disease without esophagitis; F17.298 Nicotine dependence, other tobacco product, with other nicotine-induced disorders; F14.90 Cocaine use, unspecified, uncomplicated; F11.90 Opioid use, unspecified, uncomplicated; F12.90 Cannabis use, unspecified, uncomplicated; Z72.89 Other problems related to lifestyle; Z95.828 Presence of other vascular implants and grafts; Y83.5 Amputation of limb(s) as the cause of abnormal reaction of the patient, or of later complication, without mention of misadventure at the time of the procedure ==

== ENCOUNTER → 2019-11-28 | Outpatient (CLI) | payer MEDICARE, MEDICAID | LOC: M.WC 02:15 | DX: T87.89 Other complications of amputation stump (principal); E11.621 Type 2 diabetes mellitus with foot ulcer; L97.515 Non-pressure chronic ulcer of other part of right foot with muscle involvement without evidence of necrosis; L97.412 Non-pressure chronic ulcer of right heel and midfoot with fat layer exposed; E11.622 Type 2 diabetes mellitus with other skin ulcer; I70.233 Atherosclerosis of native arteries of right leg with ulceration of ankle; L97.311 Non-pressure chronic ulcer of right ankle limited to breakdown of skin; E11.319 Type 2 diabetes mellitus with unspecified diabetic retinopathy without macular edema; E11.51 Type 2 diabetes mellitus with diabetic peripheral angiopathy without gangrene; I50.9 Heart failure, unspecified; K21.9 Gastro-esophageal reflux disease without esophagitis; F17.298 Nicotine dependence, other tobacco product, with other nicotine-induced disorders; F14.90 Cocaine use, unspecified, uncomplicated; F12.90 Cannabis use, unspecified, uncomplicated; F11.90 Opioid use, unspecified, uncomplicated; Z72.89 Other problems related to lifestyle; Z95.828 Presence of other vascular implants and grafts; Y83.5 Amputation of limb(s) as the cause of abnormal reaction of the patient, or of later complication, without mention of misadventure at the time of the procedure ==

== ENCOUNTER → 2019-12-12 | Outpatient (CLI) | payer MEDICARE, MEDICAID | LOC: M.WC 04:53 | DX: T87.89 Other complications of amputation stump (principal); E11.621 Type 2 diabetes mellitus with foot ulcer; L97.515 Non-pressure chronic ulcer of other part of right foot with muscle involvement without evidence of necrosis; L97.411 Non-pressure chronic ulcer of right heel and midfoot limited to breakdown of skin; I70.233 Atherosclerosis of native arteries of right leg with ulceration of ankle; L97.311 Non-pressure chronic ulcer of right ankle limited to breakdown of skin; E11.319 Type 2 diabetes mellitus with unspecified diabetic retinopathy without macular edema; E11.51 Type 2 diabetes mellitus with diabetic peripheral angiopathy without gangrene; K21.9 Gastro-esophageal reflux disease without esophagitis; I50.9 Heart failure, unspecified; F14.90 Cocaine use, unspecified, uncomplicated; F17.298 Nicotine dependence, other tobacco product, with other nicotine-induced disorders; F11.90 Opioid use, unspecified, uncomplicated; F19.90 Other psychoactive substance use, unspecified, uncomplicated; Z95.828 Presence of other vascular implants and grafts; Y83.5 Amputation of limb(s) as the cause of abnormal reaction of the patient, or of later complication, without mention of misadventure at the time of the procedure ==

== ENCOUNTER → 2019-12-19 | Outpatient (CLI) | payer MEDICARE, MEDICAID | LOC: M.WC 04:18 | DX: T87.89 Other complications of amputation stump (principal); E11.621 Type 2 diabetes mellitus with foot ulcer; L97.512 Non-pressure chronic ulcer of other part of right foot with fat layer exposed; L97.412 Non-pressure chronic ulcer of right heel and midfoot with fat layer exposed; I70.233 Atherosclerosis of native arteries of right leg with ulceration of ankle; L97.321 Non-pressure chronic ulcer of left ankle limited to breakdown of skin; E11.319 Type 2 diabetes mellitus with unspecified diabetic retinopathy without macular edema; E11.51 Type 2 diabetes mellitus with diabetic peripheral angiopathy without gangrene; I50.9 Heart failure, unspecified; K21.9 Gastro-esophageal reflux disease without esophagitis; F17.298 Nicotine dependence, other tobacco product, with other nicotine-induced disorders; F14.90 Cocaine use, unspecified, uncomplicated; F11.90 Opioid use, unspecified, uncomplicated; F12.90 Cannabis use, unspecified, uncomplicated; Z72.89 Other problems related to lifestyle; Z95.828 Presence of other vascular implants and grafts; Y83.5 Amputation of limb(s) as the cause of abnormal reaction of the patient, or of later complication, without mention of misadventure at the time of the procedure ==

== ENCOUNTER → 2020-01-02 | Outpatient (CLI) | payer MEDICARE, MEDICAID | LOC: M.WC 05:03 | DX: T87.89 Other complications of amputation stump (principal); E11.621 Type 2 diabetes mellitus with foot ulcer; L97.412 Non-pressure chronic ulcer of right heel and midfoot with fat layer exposed; I70.233 Atherosclerosis of native arteries of right leg with ulceration of ankle; L97.311 Non-pressure chronic ulcer of right ankle limited to breakdown of skin; E11.319 Type 2 diabetes mellitus with unspecified diabetic retinopathy without macular edema; I50.9 Heart failure, unspecified; K21.9 Gastro-esophageal reflux disease without esophagitis; F17.298 Nicotine dependence, other tobacco product, with other nicotine-induced disorders; F14.90 Cocaine use, unspecified, uncomplicated; F11.90 Opioid use, unspecified, uncomplicated; F12.90 Cannabis use, unspecified, uncomplicated; Z72.89 Other problems related to lifestyle; Z95.828 Presence of other vascular implants and grafts; Y83.5 Amputation of limb(s) as the cause of abnormal reaction of the patient, or of later complication, without mention of misadventure at the time of the procedure ==

== ENCOUNTER → 2020-01-16 | Outpatient (CLI) | payer MEDICARE, MEDICAID | LOC: M.WC 05:00 | DX: T87.89 Other complications of amputation stump (principal); E11.621 Type 2 diabetes mellitus with foot ulcer; L97.412 Non-pressure chronic ulcer of right heel and midfoot with fat layer exposed; E11.622 Type 2 diabetes mellitus with other skin ulcer; I70.233 Atherosclerosis of native arteries of right leg with ulceration of ankle; L97.311 Non-pressure chronic ulcer of right ankle limited to breakdown of skin; L84 Corns and callosities; E11.319 Type 2 diabetes mellitus with unspecified diabetic retinopathy without macular edema; I50.9 Heart failure, unspecified; K21.9 Gastro-esophageal reflux disease without esophagitis; F17.298 Nicotine dependence, other tobacco product, with other nicotine-induced disorders; F11.90 Opioid use, unspecified, uncomplicated; F14.90 Cocaine use, unspecified, uncomplicated; F12.90 Cannabis use, unspecified, uncomplicated; Z72.89 Other problems related to lifestyle; Z89.512 Acquired absence of left leg below knee; Z95.828 Presence of other vascular implants and grafts; Y83.5 Amputation of limb(s) as the cause of abnormal reaction of the patient, or of later complication, without mention of misadventure at the time of the procedure ==

== ENCOUNTER → 2020-01-30 | Outpatient (CLI) | payer MEDICARE, MEDICAID | LOC: M.WC 03:19 | DX: T87.89 Other complications of amputation stump (principal); E11.621 Type 2 diabetes mellitus with foot ulcer; L97.411 Non-pressure chronic ulcer of right heel and midfoot limited to breakdown of skin; E11.622 Type 2 diabetes mellitus with other skin ulcer; I70.233 Atherosclerosis of native arteries of right leg with ulceration of ankle; L97.311 Non-pressure chronic ulcer of right ankle limited to breakdown of skin; E11.319 Type 2 diabetes mellitus with unspecified diabetic retinopathy without macular edema; I50.9 Heart failure, unspecified; K21.9 Gastro-esophageal reflux disease without esophagitis; F17.298 Nicotine dependence, other tobacco product, with other nicotine-induced disorders; F12.90 Cannabis use, unspecified, uncomplicated; F14.90 Cocaine use, unspecified, uncomplicated; F11.90 Opioid use, unspecified, uncomplicated; Z72.89 Other problems related to lifestyle; Z95.828 Presence of other vascular implants and grafts; Y83.5 Amputation of limb(s) as the cause of abnormal reaction of the patient, or of later complication, without mention of misadventure at the time of the procedure ==

== ENCOUNTER 2020-03-04 06:55 | Observation (INO) | payer MEDICARE, MEDICAID ==
[~2020-03-04] VITALS: Ht 175.3 cm; Wt 72.6 kg
[2020-03-04] VITALS (18 sets, daily range): BP systolic 116–172; BP diastolic 60–98
[2020-03-04 08:03] LABS: HEMATOCRIT 30.9 % (42.0-52.0); HEMOGLOBIN 10.7 gm/dL (14.0-18.0); MCH 29.4 pg (26.0-34.0); MCHC 34.5 g/dL (28.0-37.0); MCV 85.1 fL (80.0-100.0); MPV 7.7 fl. (7.2-11.1); RBC 3.63 mil/uL (4.50-6.00); RDW-CV 14.4 % (10.5-14.5); WBC 7.2 thou/uL (4.0-11.0)
[2020-03-04 08:15] LABS: CALCIUM 9.4 mg/dL (8.5-10.1); CREATININE 1.2 mg/dL (0.6-1.3); POTASSIUM 5.3 mmol/L (3.5-5.1)
[2020-03-04 08:16] LABS: INR 1.1; PROTIME 11.5 Seconds (9.20-11.50)
[2020-03-04 08:20] LABS: ALBUMIN 3.6 g/dL (3.4-5.0); TOTAL BILIRUBIN 0.2 mg/dL (<0.1-1.0); TOTAL PROTEIN 8.1 g/dL (6.4-8.2)
--- NOTE | 2020-03-04 12:58 | NUR ---
PT ADMITTED TO UNIT POST CATH. PT BEDREST FOR 2 HOURS, VITALS AND ASSESSMENT COMPLETED ORDERED. DIET ORDERED. FALL RISK PRECAUTIONS IN PLACE. WILL CONTINUE TO MONITOR.
--- NOTE | 2020-03-04 17:24 | NUR ---
PT REMAINED ALERT AND ORIENTED. PT RESTING IN BED. VITALS AND INCISION AND PULSES ASSESSED PER PROTOCOL. FALL RISK PRECAUTIONS IN PLACE. PT C/O PAIN, MEDS GIVEN ORDERED. FALL RISK PRECAUTIONS IN PLACE. HOURLY ROUNDING COMPLETED. WILL CONTINUE TO MONITOR.
[2020-03-05] VITALS: BP 140/87
[2020-03-05 03:45] VITALS: BP 117/68
--- NOTE | 2020-03-05 04:24 | NUR ---
PATIENT ALERT AND ORIENTED X 4, RESTING QUIETLY ON HOURLY ROUNDS. DRESSING RIGHT GROIN CLEAN AND DRY. VITAL SIGNS STABLE. 1+ PULSE RLE. MEDS PER ORDER, PAIN MEDICATION X 1 THIS SHIFT. CONTINUE TO MONITOR.
[2020-03-05 07:15] VITALS: BP 123/61
--- NOTE | 2020-03-05 07:22 | OP ---
[facility] [address] [place] [address] OPERATIVE REPORT Name: KAICLARA Ranjeet Room: [address] M.R.#: [id number] Admission: 03/04/20 Attend Phys: Nestor Niño MD Discharge: Date of : 64 Report #: [id number] THIS REPORT FOR: //name// cc: Germain Faith MD, Bruce D. MD ~ THIS REPORT FOR: //name// CC: Germain Niño DATE OF SERVICE: 03/04/2020 PREOPERATIVE DIAGNOSES: Severe peripheral vascular disease and diabetes. POSTOPERATIVE DIAGNOSES: Severe peripheral vascular disease and diabetes. PROCEDURES: 1. Aortogram runoff, right lower extremity. 2. Angioplasty and stenting of right SFA in-stent restenosis and stent fracture. 3. Left common iliac artery angioplasty and stenting. 4. Third-order vessel cannulization, right lower extremity. 5. Ultrasound guidance for arterial access left common femoral artery with image saved. FINDINGS: On aortogram with runoff: 1. Aorta widely patent. 2. Left common iliac artery with moderate to severe stenosis, approximately 80%. 3. Right common and external iliac arteries widely patent. 4. Right common femoral, profunda femoris arteries widely patent. 5. Previously placed right SFA stents patent, but severe stenosis within the midportion with stent fracture. 6. Right popliteal artery widely patent with 2-vessel runoff to the right foot through the right anterior tibial and peroneal arteries. 7. After intervention, there is widely patent flow through the right SFA and the left common iliac artery. SURGEON: Nestor Niño MD DOUGH MIXING MACHINE OPERATOR: Derek Cancino, ophthalmology surgical technician. COMPLICATIONS: None. ESTIMATED BLOOD LOSS: [place] [address] OPERATIVE REPORT Name: CLARA QUINN Room: [address] Zara#: [id number] Admission: 03/04/20 Attend Phys: Nestor Niño MD Discharge: Date of : 64 Report #: [id number] ANESTHESIA: Local sedation. INDICATIONS FOR PROCEDURE: The patient is a very pleasant 59-year-old severe vasculopath diabetic. 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 I previously revascularized his right leg for nonhealing foot amputation. I am pleased to report he has now healed his foot; however, he has evidence for restenosis and stent fracture in the right SFA on recent followup arterial duplex. This is causing significant stenosis. We plan for intervention today. Informed consent was obtained from the patient with risks including but not limited to bleeding, infection, need for further surgery, pain, , heart attack, stroke, amputation. The patient understood these risks and was agreeable to proceed. DESCRIPTION OF PROCEDURE: The patient was taken to the angio suite and placed in supine position. Timeout was performed. Left groin was prepped and draped in usual sterile fashion. The patient received appropriate perioperative antibiotics. The patient was systemically heparinized throughout the critical portions of the procedure. I infused 10 mL of 1% lidocaine for local anesthetic in the left groin. Under ultrasound guidance with an image saved, I cannulated the left common femoral artery without difficulty. I used Seldinger technique to exchange out for a 6-Italian sheath. I passed a wire and catheter into the abdominal aorta and performed aortogram with runoff, findings noted above. Incidentally found was the severe stenosis within the left common iliac artery. I selectively cannulated the right iliac artery and placed up and over 6-Italian sheath. I selectively cannulated the right SFA and carefully crossed the stenosis within the stent. I confirmed reentry in the true lumen distally with distal angiogram. I performed selective angiogram of the popliteal and tibial vessels. I angioplastied the stenosis within the stent with a 6 mm balloon. I then realigned the area of the stent fracture with a 7 x 60 LifeStent. I post-dilated the stent with a 6 mm balloon. Completion imaging showed excellent result with resolution of the stenosis and realigning of the area of fracture. There was no evidence of distal embolization. I withdrew back and replaced back from a short 6-Italian sheath on the left. I angioplastied the common iliac artery with the 6 mm balloon. I then placed a 10 x 40 E-Luminexx stent, covering the area of stenosis within the common iliac artery. I post-dilated the stent with an 8 mm balloon. Completion imaging showed excellent result with resolution of the stenosis and no evidence of extravasation. I removed the sheath and wire. I placed a 6-Italian Angio-Seal without complication. There was no bleeding or hematoma. The patient tolerated the procedure well and was taken alert and awake to recovery room in good condition. All needle and instrument counts were correct at the end of the case. The patient will be admitted for observation as he has no responsible democrat to take him home. <ELECTRONICALLY SIGNED> By: Patrick Orellana DO 03/05/20 0722 0952 1021Rprema Niño MD /hermelinda
[2020-03-05 08:12] LABS: HEMATOCRIT 29.5 % (42.0-52.0); HEMOGLOBIN 10.2 gm/dL (14.0-18.0); MCH 29.1 pg (26.0-34.0); MCHC 34.5 g/dL (28.0-37.0); MCV 84.5 fL (80.0-100.0); MPV 8.6 fl. (7.2-11.1); RBC 3.49 mil/uL (4.50-6.00); RDW-CV 14.2 % (10.5-14.5); WBC 6.4 thou/uL (4.0-11.0)
[2020-03-05 08:33] LABS: CALCIUM 8.5 mg/dL (8.5-10.1); CREATININE 1.2 mg/dL (0.6-1.3); POTASSIUM 4.7 mmol/L (3.5-5.1)
[2020-03-05] MEDS ORDERED: ASA81BEC PO (09:38)
[2020-03-05 09:40] VITALS: BP 138/98
[2020-03-05 09:55] VITALS: BP 138/98
--- NOTE | 2020-03-05 09:56 | NUR ---
PT GIVEN DISCHARGE INFORMATION. IV REMOVED. PT DENIED ANY QUESIONS AT THIS TIME. FALL RISK PRECAUTIONS IN PLACE. PT BELONGINGS GATHERED. PT LEFT VIA WHEELCHAIR WITH NURSING STAFF TO HOME,
== END 2020-03-05 09:57 | disposition home or self-care (01) ==
LOC: M.INT 06:55 → M.TBA-CV 08:37 → M.INT 09:30 → M.3W 11:21
PROVIDERS: ADMIT Surgery Vascular Surgery
DX: E11.51 Type 2 diabetes mellitus with diabetic peripheral angiopathy without gangrene (principal); F41.9 Anxiety disorder, unspecified; I10 Essential (primary) hypertension

== ENCOUNTER 2020-04-09 14:47 | Inpatient (IN) | payer MEDICARE, MEDICAID ==
[~2020-04-09] VITALS: Ht 175.3 cm; Wt 68.5 kg
[~2020-04-09 14:47] MED LIST changes: +ASA81BEC PO
[2020-04-09 14:54] VITALS: BP 100/54
[2020-04-09] MEDS ORDERED: ZOLOFT100 MG PO (15:01)
[2020-04-09] MEDS ORDERED: CARVEDILOL12.5 MG PO (15:01)
[2020-04-09] MEDS ORDERED: LYRICA150 MG PO (15:01)
[2020-04-09] MEDS ORDERED: OMEPRAZOLE40 MG PO (15:01)
[2020-04-09] MEDS ORDERED: PLAVIX 75 MG TA75 MG PO (15:02)
[2020-04-09] MEDS ORDERED: ASA81BEC PO (15:02)
[2020-04-09] MEDS ORDERED: INGREZZA80 MG PO (15:02)
[2020-04-09] MEDS ORDERED: OSTERA TABLET1 EAC1 PO (15:02)
[2020-04-09] MEDS ORDERED: HEALTHY EYES T1 EACH PO (15:03)
[2020-04-09] MEDS ORDERED: SUPER THERAVIT1 EACH PO (15:03)
[2020-04-09] MEDS ORDERED: IRON325 M1 PO (15:03)
[2020-04-09] MEDS ORDERED: METFORMIN HCL500 M3 PO (15:03)
[2020-04-09] MEDS ORDERED: DITROPAN XL10 M1 PO (15:04)
[2020-04-09] MEDS ORDERED: DESYREL150 MG PO (15:04)
[2020-04-09] MEDS ORDERED: SIMVASTATIN40 MG PO (15:04)
[2020-04-09] MEDS ORDERED: HYDROCODON-ACE1 EA10 PO (15:05)
[2020-04-09] MEDS ORDERED: ENTRESTO 97 MG1 EACH PO (15:05)
[2020-04-09 15:35] LABS: ABSOLUTE EOSINOPHILS 0.2 thou/uL (0.0-0.7); ABSOLUTE MONOCYTES 0.6 thou/uL (0.0-1.2); ABSOLUTE NEUTROPHILS 4.7 thou/uL (1.6-8.1); BASOPHILS 0.5 %; EOSINOPHILS 2.4 %; HEMATOCRIT 32.3 % (42.0-52.0); HEMOGLOBIN 11.1 gm/dL (14.0-18.0); LYMPHOCYTES 15.8 %; MCH 29.5 pg (26.0-34.0); MCHC 34.5 g/dL (28.0-37.0); MCV 85.7 fL (80.0-100.0); MPV 8.3 fl. (7.2-11.1); NUCLEATED RBCS 0 /100WBC; PLATELET COUNT* 148 thou/uL (150-400); POLYS 72.3 %; RBC 3.77 mil/uL (4.50-6.00); RDW-CV 14.2 % (10.5-14.5); WBC 6.5 thou/uL (4.0-11.0)
[2020-04-09 15:42] LABS: APTT 30.5 Seconds (25.0-31.3); INR 1.1; PROTIME 11.3 Seconds (9.20-11.50)
[2020-04-09 16:14] LABS: CALCIUM 9.1 mg/dL (8.5-10.1); CREATININE 1.4 mg/dL (0.6-1.3); POTASSIUM 5.2 mmol/L (3.5-5.1)
[2020-04-09 16:29] LABS: ALBUMIN 3.6 g/dL (3.4-5.0); TOTAL BILIRUBIN 0.2 mg/dL (<0.1-1.0); TOTAL PROTEIN 7.3 g/dL (6.4-8.2)
[2020-04-09 21:40] VITALS: BP 142/68
[2020-04-09 21:50] VITALS: BP 161/79
[2020-04-09] MEDS ORDERED: HYDROXYZINE PAM50 MG PO (22:42)
[2020-04-10 05:07] LABS: CHOLESTEROL 135 mg/dL (<200); HDL CHOLESTEROL 30 mg/dL (>40); LDL CHOLESTEROL 85 mg/dL (<100); TC:HDL 4.5 Ratio (Not establshd); TRIGLYCERIDE 104 mg/dL (<150); VLDL 21 mg/dL (<40)
[2020-04-10 05:29] LABS: SERUM ASSESSMENT CLEAR
[2020-04-10 05:58] VITALS: BP 121/57
[2020-04-10 08:35] VITALS: BP 105/60
[2020-04-10 09:41] LABS: CALCIUM 8.6 mg/dL (8.5-10.1); CREATININE 1.1 mg/dL (0.6-1.3); POTASSIUM 5.1 mmol/L (3.5-5.1)
[2020-04-10 12:20] VITALS: BP 114/56
--- NOTE | 2020-04-10 12:24 | 2DMMODE ---
[place] [address] 2 D/M-MODE ECHOCARDIOGRAM Name: CLARA QUINN Room: [address] IN [facility]#: [id number] Admission: 04/09/20 Attend Phys: Jesus Shannon, Discharge: Date of : 64 Date of Service: 04/10/20 1224 Report #: [id number] THIS REPORT FOR: cc: Germain Faith MD, Bruce D. MD Liston, Michael J. MD [facility] ~ APPROVED REPORT Study performed: 04/10/2020 10:18:07 EXAM: Comprehensive 2D, Doppler, and color-flow Echocardiogram Patient Location: In-Patient Room #: [facility] Status: routine BSA: 1.83 HR: 65 bpm BP: 105/60 mmHg Rhythm: NSR Other Information Study Quality: Good Indications CVA/TIA Echo Enhancing Agent Comments: no bubble study. No IV. Patient had previous echo with negative bubble study results. 2D Dimensions IVSd: 11.15 (7-11mm) LVOT Diam: 21.61 (18-24mm) LVDd: 52.50 mm PWd: 9.92 (7-11mm) Ascending Ao: 30.60 (22-36mm) LVDs: 31.21 (25-40mm) Aortic Root: 30.44 mm Volumes Left Atrial Volume (Systole) LA ESV Index: 28.80 mL/m2 Aortic Valve AoV Peak Joshua.: 1.34 m/s AO Peak Gr.: 7.16 mmHg LVOT Max P.78 mmHg AO Mean Gr.: 3.70 mmHg LVOT Mean P[place]79 [place] [address] 2 D/M-MODE ECHOCARDIOGRAM Name: CLARA QUINN Room: [address] IN .R.#: [id number] Admission: 04/09/20 Attend Phys: Jesus Shannon, Discharge: Date of : 64 Date of Service: 04/10/20 1224 Report #: [id number] LVOT Max V: 0.97 m/s AO V2 VTI: 28.29 cm LVOT Mean V: 0.62 m/s ROBIN (VTI): 2.94 cm2 LVOT V1 VTI: 22.70 cm Mitral Valve E/A Ratio: 0.75 MV Decel. Time: 219.98 ms MV E Max Joshua.: 0.78 m/s MV PHT: 63.79 ms MVA (PHT): 3.45 cm2 TDI E/Lateral E': 7.80 E/Medial E': 11.14 Medial E' Joshua.: 0.07 m/s Lateral E' Joshua.: 0.10 m/s Pulmonary Valve PV Peak Joshua.: 0.80 m/s PV Peak Gr.: 2.56 mmHg Left Ventricle The left ventricle is normal size. There is akinesis of the mid to apical septal, anterosepta, anterior l and apical herrera. There is normal left ventricular wall thickness. Left ventricular systolic function is preserved. LVEF is 50-55%. Grade I - abnormal relaxation pattern. Right Ventricle The right ventricle is normal size. The right ventricular systolic function is normal. Atria The left atrium size is normal. The right atrium size is normal. Aortic Valve Mild aortic valve sclerosis. No aortic regurgitation is present. There is no aortic valvular stenosis. Mitral Valve The mitral valve is normal in structure. Trace mitral regurgitation. No evidence of mitral valve stenosis. Tricuspid Valve The tricuspid valve is normal in structure. Trace tricuspid regurgitation. Unable [place] [address] 2 D/M-MODE ECHOCARDIOGRAM Name: CLARA QUINN Room: [address] IN [facility]#: [id number] Admission: 04/09/20 Attend Phys: Jesus Shannon, Discharge: Date of : 64 Date of Service: 04/10/20 1224 Report #: [id number] Pulmonic Valve The pulmonary valve is normal in structure. There is no pulmonic valvular regurgitation. Great Vessels The aortic root is normal in size. IVC is normal in size and collapses >50% with inspiration. Pericardium There is no pericardial effusion. <Conclusion> The left ventricle is normal size. There is normal left ventricular wall thickness. Left ventricular systolic function is preserved. LVEF is 50-55%. Grade I - abnormal relaxation pattern. There is akinesis of the mid to apical septal, anterosepta, anterior l and apical herrera. Mild aortic valve sclerosis. Trace mitral regurgitation. Trace tricuspid regurgitation. IVC is normal in size and collapses >50% with inspiration. <ELECTRONICALLY SIGNED> By: Giorgio Bartholomew MD, FACC 04/10/20 1224 1224 1224 Giorgio Bartholomew MD, FACC /INF
--- NOTE | 2020-04-10 12:32 | EKG ---
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: : 1960 Requested By: Amilcar Olivas Order Number: [id number] MD: Giorgio Bartholomew Measurements Intervals [place] Rate: 65 P: 46 AK: 178 QRS: 1 QRSD: 93 T: 54 QT: 406 QTc: 423 Interpretive Statements Sinus rhythm Left ventricular hypertrophy, by voltage Inferior infarct, old Compared to ECG 09/19/2019 12:02:05 Left ventricular hypertrophy now present Myocardial infarct finding now present T-wave abnormality no longer present Electronically Signed On 04-10-2020 12:32:28 CDT by Giorgio Bartholomew [email or web address] <ELECTRONICALLY SIGNED> By: Giorgio Bartholomew MD, FACC 04/10/20 1232 1505 1505 Giorgio Bartholomew MD, FAC /EPI
[2020-04-10 17:50] VITALS: BP 148/85
--- NOTE | 2020-04-10 17:53 | CON ---
[facility] [address] [place] [address] CONSULTATION Name: CLARA QUINN Room: [address] [place].#: [id number] Admission: 04/09/20 Attend Phys: Jesus Shannon MD Discharge: Date of : 64 Report #: [id number] THIS REPORT FOR: //name// cc: Germain Faith MD, Bruce D. MD ~ THIS REPORT FOR: //name// CC: Jesus Faith DATE OF SERVICE: 04/10/2020 HISTORY OF PRESENT ILLNESS: This is a 59-year-old male patient who was admitted with dizziness. It looks like dizziness was postural at least to some extent. He is better this morning, but his problems have not fully resolved. I reviewed an extensive records in the computer in this patient and it looks like this patient had dizziness somewhere in 2015 and 2016. At that time, he was found to have multiple strokes in the brain. The best I can tell from the records, he refused MRAs. Since then, he had multiple CTs and that have demonstrated old strokes. He has not had any recent MRI. His history is poor and difficult to get. His memory is poor and he does not know what month it is. He lives with his mother and he says he helps his mother. His sisters live next door and they come and help. He does not drive. He orders grocery on line. REVIEW OF SYSTEMS: Also positive for diabetes, anxiety, amputation in the left lower extremities, vascular insufficiency of the right lower extremities. He had histories of CVAs in either 2014 or 2015. He used to smoke that time and he says he does not smoke now. He has peripheral vascular disease. He has a severe neuropathy. He has a history of cholecystectomy, history of anemia, and history of hypertension. At one time, he had a nonhealing wound on the right leg. He thinks his vision is okay in spite of the fact that he has an occipital lobe stroke. He does not have any ENT, cardiac, respiratory, GI, , musculoskeletal, constitutional, dermatological, hematological, psychiatric, throat, allergic symptoms associated with present symptomatology. PAST MEDICAL HISTORY: Positive for strokes, but further history is not clear. They are documented on the patient's CT scan and MRIs. FAMILY HISTORY: Unremarkable. SOCIAL HISTORY: He has a history of smoking. PHYSICAL EXAMINATION: Indicate he did not know what month it is, [place] [address] CONSULTATION Name: KAICLARA Room: [address]#: [id number] Admission: 04/09/20 Attend Phys: Jesus Shannon MD Discharge: Date of : 64 Report #: [id number] what hospital he is in and who the president is. His speech looks intact. His cranial nerve examination 2-12, the best I can see was mostly unremarkable. I did not see much visual field deficit, but his cooperation was poor and subtle visual field deficit may have been missed. He is somewhat weak in all 4 extremities. He has an amputation on the left lower extremity. His position sense is absent in the right lower extremity. His reflexes could not be elicited. His tone looks unremarkable. There is no meningeal sign. There is no carotid bruit. I could not look at the patient's fundus. His hearing and vision looks adequate. He has no thyroid mass or carotid bruit. His pulses are very difficult to feel. His blood pressure is 121/57, respirations 15, pulse is 63, temperature is 97.6. LABORATORY DATA: Indicate a white count of 6.5. Sodium was a trace low at 134. His last B12 was done a long time ago and it was normal. He did have a CT scan of the head, which was reviewed and that does show chronic changes. IMPRESSION AND PLAN: Very difficult to form in this patient. If the blood pressure was fluctuating, his dizziness may have been secondary to fluctuating blood pressure. He has multiple strokes in the past and at one time, he has presented with the dizziness and he was found to have a stroke. 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 He is already scheduled for a carotid Doppler. He does appear to have a severe neuropathy in the lower extremities, probably because of diabetes. Other etiologies can be done. He used to be on aspirin and Plavix. He does not know what he takes now. His last ejection fraction was low. We will check on that and I think this patient needs a 30 days event monitor as an outpatient because of multiple strokes in the brain, although he has a severe vascular disease. We will see how much workup he allows and we will ask Dr. Ramos and to follow up this patient with you from tomorrow. <ELECTRONICALLY SIGNED> By: Camacho Santana MD 04/10/20 1753 0754 0810Parkayla Santana MD /nt
[2020-04-10 18:06] LABS: IgA 149 mg/dL (90-386); IgG 1049 mg/dL (603-1613); IgM 106 mg/dL (20-172)
[2020-04-10 19:04] LABS: URINE BILIRUBIN NEGATIVE (Negative); URINE BLOOD NEGATIVE (Negative); URINE CLARITY CLEAR; URINE COLOR YELLOW; URINE GLUCOSE-RANDOM NEGATIVE (Negative); URINE KETONES NEGATIVE (Negative); URINE LEUKOCYTES-REFLEX NEGATIVE (Negative); URINE NITRITE-REFLEX NEGATIVE (Negative); URINE PROTEIN NEGATIVE (Negative); URINE UROBILINOGEN 0.2 E.U./dl (0.2-1.0)
[2020-04-10 20:00] VITALS: BP 164/79
[2020-04-11 00:40] VITALS: BP 160/84
[2020-04-11 02:06] LABS: GLYCOHEMOGLOBIN (HGB A1C) 5.1 % (4.8-5.6)
[2020-04-11 04:10] VITALS: BP 122/68
[2020-04-11 04:12] LABS: ABSOLUTE EOSINOPHILS 0.2 thou/uL (0.0-0.7); ABSOLUTE LYMPHOCYTES 1.1 thou/uL (0.8-5.3); ABSOLUTE MONOCYTES 0.6 thou/uL (0.0-1.2); ABSOLUTE NEUTROPHILS 2.4 thou/uL (1.6-8.1); BASOPHILS 0.8 %; EOSINOPHILS 4.2 %; HEMATOCRIT 30.4 % (42.0-52.0); HEMOGLOBIN 10.6 gm/dL (14.0-18.0); LYMPHOCYTES 25.9 %; MCH 29.2 pg (26.0-34.0); MCV 83.5 fL (80.0-100.0); MONOCYTES 13.1 %; NUCLEATED RBCS 0 /100WBC; PLATELET COUNT* 133 thou/uL (150-400); RBC 3.64 mil/uL (4.50-6.00); RDW-CV 13.8 % (10.5-14.5); WBC 4.3 thou/uL (4.0-11.0)
[2020-04-11 04:23] LABS: CALCIUM 8.8 mg/dL (8.5-10.1); CREATININE 1.1 mg/dL (0.6-1.3); POTASSIUM 4.9 mmol/L (3.5-5.1)
[2020-04-11 08:00] VITALS: BP 115/59
[2020-04-11 11:30] VITALS: BP 84/48
[2020-04-11 11:39] VITALS: BP 115/59
[2020-04-11] MEDS ORDERED: LEVO-T25 MCG PO (13:17)
[2020-04-11 13:19] VITALS: BP 115/59
[2020-04-11 16:15] LABS: ANA INTERPRETATION Positive (Negative)
== END 2020-04-11 15:00 | disposition home health service (06) | DRG 682 ==
LOC: M.ERS 14:47 → M.2W 16:59 → M.TBA-ER 16:59 → M.2W 19:13
PROVIDERS: Family Medicine; Psychiatry & Neurology Neuromuscular Medicine; ADMIT Internal Medicine; ATTEND Internal Medicine
DX: N17.0 Acute kidney failure with tubular necrosis (principal); G93.41 Metabolic encephalopathy; M31.9 Necrotizing vasculopathy, unspecified; I13.0 Hypertensive heart and chronic kidney disease with heart failure and stage 1 through stage 4 chronic kidney disease, or unspecified chronic kidney disease; I95.1 Orthostatic hypotension; Z20.828 Contact with and (suspected) exposure to other viral communicable diseases; I50.9 Heart failure, unspecified; E11.51 Type 2 diabetes mellitus with diabetic peripheral angiopathy without gangrene; F41.9 Anxiety disorder, unspecified; I25.10 Atherosclerotic heart disease of native coronary artery without angina pectoris; E86.0 Dehydration; N18.2 Chronic kidney disease, stage 2 (mild); E11.22 Type 2 diabetes mellitus with diabetic chronic kidney disease; Z89.212 Acquired absence of left upper limb below elbow; Z86.73 Personal history of transient ischemic attack (TIA), and cerebral infarction without residual deficits; Z95.820 Peripheral vascular angioplasty status with implants and grafts; Z89.421 Acquired absence of other right toe(s); Z95.5 Presence of coronary angioplasty implant and graft; Z90.49 Acquired absence of other specified parts of digestive tract; Z88.1 Allergy status to other antibiotic agents; Z88.8 Allergy status to other drugs, medicaments and biological substances; Z87.891 Personal history of nicotine dependence; Z79.82 Long term (current) use of aspirin; Z79.899 Other long term (current) drug therapy

== ENCOUNTER → 2020-04-18 | Outpatient (CLI) | payer MEDICARE, MEDICAID ==
[~2020-04-18] MED LIST changes: +DESYREL150 MG PO; +DITROPAN XL10 M1 PO; +ENTRESTO 97 MG1 EACH PO; +HEALTHY EYES T1 EACH PO; +HYDROCODON-ACE1 EA10 PO; +HYDROXYZINE PAM50 MG PO; +IRON325 M1 PO; +LEVO-T25 MCG PO; +METFORMIN HCL500 M3 PO; +OMEPRAZOLE40 MG PO; +OSTERA TABLET1 EAC1 PO; +PLAVIX 75 MG TA75 MG PO; +SUPER THERAVIT1 EACH PO; +ZOLOFT100 MG PO
== END ==
LOC: M.ULTRA 04-10 13:00
PROVIDERS: ATTEND Surgery Vascular Surgery
DX: I70.213 Atherosclerosis of native arteries of extremities with intermittent claudication, bilateral legs (principal)

== ENCOUNTER → 2021-03-18 | Outpatient (CLI) | payer MEDICARE, MEDICAID ==
[~2021-03-18] MED LIST changes: +CRESTOR40 MG PO; +HYDROCODON-ACE1 EAC8 PO; +SERTRALINE HCL100 MG PO; +VITAMIN C1000 MG PO; +VITAMIN D325 MC3 PO
== END ==
LOC: M.WC 13:00
PROVIDERS: ATTEND Podiatrist Foot & Ankle Surgery
DX: E11.621 Type 2 diabetes mellitus with foot ulcer (principal); L97.511 Non-pressure chronic ulcer of other part of right foot limited to breakdown of skin; L03.115 Cellulitis of right lower limb; E11.51 Type 2 diabetes mellitus with diabetic peripheral angiopathy without gangrene; I50.9 Heart failure, unspecified; E11.319 Type 2 diabetes mellitus with unspecified diabetic retinopathy without macular edema; L84 Corns and callosities; F17.210 Nicotine dependence, cigarettes, uncomplicated; Z79.82 Long term (current) use of aspirin; Z79.899 Other long term (current) drug therapy; Z79.84 Long term (current) use of oral hypoglycemic drugs; Z95.828 Presence of other vascular implants and grafts; Z89.512 Acquired absence of left leg below knee